=== PATIENT | male | born 1960 | race Caucasian/White ===

== ENCOUNTER → 2018-01-15 | Outpatient (CLI) | payer BC ==
--- NOTE | 2018-01-15 22:27 | CONS ---
CONSULTATION PRIMARY CARE PHYSICIAN: Dr. Restrepo REASON FOR EVALUATION: Obstructive sleep apnea. HISTORY OF PRESENT ILLNESS: This is a 57-year-old male patient was diagnosed having obstructive sleep apnea more than 10 years ago through the sleep center in [place]. He had an older generation CPAP unit which he not bring today to the office. The exact pressure setting is not known. The original diagnostic circumstances and treatment consent on the sleep apnea is not known. The patient is still using his older CPAP machine. He is using a full-face mask. He is in for reevaluation. He is not seeing the full benefit and he thinks that he may need to repeat his sleep studies to re-evaluate and improve his treatment response. He is on and off snoring while on the treatment. He goes to bed around 1:00 am to 2:00 am, and he gets out of bed around 10 a.m. in the morning. Despite averaging around 6-7 hours of sleep, the patient is still tired and sleepy during the day. He falls asleep during the day. He is quite somnolent and sleepy. Unsure if he has gained any weight over the past 2 years. He thinks that his weight has been essentially stable. He could have lost some weight thinking that he used to weigh around 320 pounds and currently is down to 265. His current [place] score 13. No seizure activity. No chest pain. No shortness of breath. No restlessness in lower extremities. PAST MEDICAL HISTORY: 1. Obstructive sleep apnea, details discussed above. 2. Chronic anxiety. 3. Benign prostatic hypertrophy. 4. Hypertension. 5. History of bilateral deep vein thrombosis lower extremity. 6. Hyperlipidemia. PAST SURGICAL HISTORY: Includes tonsillectomy and adenoidectomy and hernia surgery x2 and bilateral knee surgery. DRUG ALLERGIES: Not known. OUTPATIENT MEDICATION: Include hydrocodone 10/325 twice a day for pain control. Klonopin 1 mg for anxiety once a day. Lopressor 50 mg twice a day, Pepcid 40 mg p.o. twice a day. Lamictal 100 mg 3 times a day, Coumadin 5 mg alternating 2 pills and 3 pills. Flomax 0.4 mg p.o. daily, muscle relaxer which is Flexeril 10 mg at bedtime. He is also taking an additional cholesterol pills. FAMILY HISTORY: Negative for sleep apnea. Father had heart disease. Mother had diabetes mellitus. REVIEW OF SYSTEMS: 12-point review of system was done. He is having tiredness and sleepiness during the day. He snores while on CPAP therapy. He is using a full-face mask. No choking or gasping sensation at nighttime. No nocturia. No grinding of the teeth. No dry mouth. No palpitation. He has chronic anxiety. No panic attacks. No heartburn. No sweating. No sleeptalking or no sleepwalking. No claustrophobia. No sexual dysfunction. No history of depression. PHYSICAL EXAMINATION: His current vitals: BP is 109/64, pulse 60 respirations 16, temperature 97.9, saturation 98% on room air. Height 5 feet 11 inches with 233 weight, neck size is 15- 3/4 of an inch. GENERAL APPEARANCE: Appears calm, comfortable. Not in acute distress. HEENT: Head is atraumatic, normocephalic. NECK: Neck is short supple. Mallampati class IV. There is no goiter or neck masses. LUNGS: Clear to auscultation. HEART: Sounds regular rate and rhythm. Normal S1, S2. No S3, S4. No murmurs. ABDOMEN: Soft, nontender. No organomegaly. EXTREMITIES: No edema. No cyanosis or clubbing. NEUROLOGIC: The patient is alert and oriented x3. No focal neurological deficits. PSYCHIATRIC: Negative for depression, yet he is having anxiety. SKIN negative for any wounds or ulceration. IMPRESSION: 1. Obstructive sleep apnea. Symptomatic. His last evaluation was done 10 years ago at [facility]. The patient is coming in for evaluation. He has lost probably around 50 pounds since his original diagnosis. He used to weigh around 135, and currently is down to 233. 2. Hypersomnia [place] score of 13. 3. Chronic anxiety and chronic pain. 4. Hyperlipidemia. 5. Benign prostatic hypertrophy. 6. History of deep vein thrombosis currently on long-term anticoagulation with warfarin. PLAN: 1. We will try to obtain copies of his previous sleep study from [facility]. 2. I will re-evaluate the patient. We will order another plus polysomnogram to re- evaluate the presence of obstructive sleep apnea especially that he has lost significant amount of weight over the years and if needed we will proceed with CPAP titration and treat this patient's obstructive sleep apnea. 3. Optimize sleep hygiene measures. 4. Continue Klonopin for anxiety. 5. Continue Flexeril as a muscle relaxant. 6. We will continue to follow and make further recommendations based on results of the sleep study. MMODL / IJN: [id number] /
== END | disposition home or self-care (01) ==
LOC: SLEEP 15:43
PROVIDERS: ATTEND Internal Medicine Critical Care Medicine
DX: G47.33 Obstructive sleep apnea (adult) (pediatric) (principal); F41.8 Other specified anxiety disorders; G89.29 Other chronic pain; N40.0 Benign prostatic hyperplasia without lower urinary tract symptoms; I10 Essential (primary) hypertension; E78.5 Hyperlipidemia, unspecified; Z86.718 Personal history of other venous thrombosis and embolism; Z79.01 Long term (current) use of anticoagulants; Z79.899 Other long term (current) drug therapy; Z98.890 Other specified postprocedural states; Z79.891 Long term (current) use of opiate analgesic
CPT/HCPCS: 99211

== ENCOUNTER 2022-06-10 03:19 | Inpatient (IN) | payer BC ==
[2022-06-10] MEDS ORDERED: SODIUM CHLORIDE 0.9% 1,000 ML IV STA ×2 (03:41→06:03)
[2022-06-10 04:13] LABS: Basophils % (A) 0 %; Eosinophils # (A) 0.1 k/uL (0-0.7); Eosinophils % (A) 1 %; HCT 39.4 % (39.0-53.0); HGB 13.3 gm/dL (13.0-17.5); Lymphocytes # (A) 1.1 k/uL (1.0-4.8); Lymphocytes % (A) 12 %; MCH 28.5 pg (25.0-35.0); MCHC 33.8 g/dL (31.0-37.0); MCV 84.3 fL (80.0-100.0); Mean Platelet Volume 9.9; Monocytes # (A) 0.7 k/uL (0-1.0); Monocytes % (A) 7 %; Neutrophils # (A) 6.9 k/uL (1.3-7.7); Neutrophils % (A) 78 %; Platelet Count 132 k/uL (150-450); RBC 4.68 m/uL (4.30-5.90); RDW 13.6 % (11.5-15.5); WBC 8.9 k/uL (3.8-10.6)
--- NOTE | 2022-06-10 04:23 | XR ---
EXAMINATION TYPE: XR chest 2V DATE OF EXAM: 06/10/2022 COMPARISON: 11/22/2014 HISTORY: Short of breath TECHNIQUE: 2 views FINDINGS: Heart and mediastinum are normal. Lungs are clear of infiltrate. No heart failure. There ar e no hilar masses. Costophrenic angles are clear. Bony thorax is intact. IMPRESSION: No active cardiopulmonary disease. Normal heart. No change.
[2022-06-10 04:30] LABS: ALT 22 U/L (4-49); AST 23 U/L (17-59); African American GFR (CKD) >90 (>60 ml/min/1.73 sqM); Albumin 4.2 g/dL (3.5-5.0); Alkaline Phosphatase 100 U/L (38-126); Anion Gap 14 mmol/L; Blood Urea Nitrogen 20 mg/dL (9-20); Calcium 8.8 mg/dL (8.4-10.2); Carbon Dioxide 22 mmol/L (22-30); Chloride 102 mmol/L (98-107); Glucose 161 mg/dL (74-99); Magnesium 1.8 mg/dL (1.6-2.3); Non-African American GFR(CKD) >90 (>60 ml/min/1.73 sqM); Sodium 138 mmol/L (137-145); Total Protein 6.9 g/dL (6.3-8.2)
[2022-06-10 04:32] LABS: INR 1.2 (<1.2); Partial Thromboplastin Time 25.8 sec (22.0-30.0); Prothrombin Time 12.2 sec (9.0-12.0)
[2022-06-10 04:34] LABS: Potassium 4.1 mmol/L (3.5-5.1)
--- NOTE | 2022-06-10 04:46 | ED ---
General Adult HPI - General Chief complaint: Shortness of Breath Stated complaint: SOB, Covid, syncope Time Seen by Provider: 06/10/22 03:33 Source: patient, family, EMS, RN notes reviewed, old records reviewed Mode of arrival: EMS Limitations: no limitations - History of Present Illness Initial comments: Patient is a 61-year-old male with past medical history remarkable for DVT is supposed to be on Coumadin but has been without for at least one week, GERD, hypertension who presents emergency department being Covid positive. Had a near syncopal episode at home earlier this evening, when he was returning from the bathroom. States he stood up from the toilet, walked into the bedroom and felt strange. He states he felt lightheaded. Nearly collapsed but was caught by family members. They called EMS and brought him here. They found that his o xygen level was low at that time, 85% on room air. They put him on 4 L nasal cannula which improved it. He denies any current chest pain but states that over the course of last week has been having intermittent substernal chest pain. Also chest tightness with coughing. Endorses one episode of diarrhea this morning. Denies nausea or vomiting. Diarrhea was nonbloody. Endorses upper respiratory symptoms including cough, congestion. Presents for further evaluation at this time.Endorses exertional shortness of breath with any form of activity since symptoms began. Also endorses generalized joint pain. Patient was vaccinated for COVID-19. - Related Data Home Medications Medication Instructions Recorded Confirmed Aspirin 81 mg PO DAILY 11/22/14 11/22/14 Famotidine [Pepcid] 40 mg PO HS 11/22/14 11/22/14 HYDROcodone/APAP 10-325MG [[place] 1 each PO Q4HR PRN 11/22/14 11/22/14 10] Metoprolol Tartrate [Lopressor] 50 mg PO BID 11/22/14 11/22/14 Warfarin [Coumadin] 5 mg PO DAILY 11/22/14 11/22/14 clonazePAM [KlonoPIN] 1 mg PO TID 11/22/14 11/22/14 lamoTRIgine [LaMICtal] 100 mg PO BID 11/22/14 11/22/14 Previous Rx's Medication Instructions Recorded Levofloxacin [Levaquin] 500 mg PO DAILY #10 tab 11/22/14 methylPREDNISolone [Medrol] 1 pack PO DIRECTED #1 tab.ds.pk 11/22/14 Allergies Allergy/AdvReac Type Severity Reaction Status Date / Time No Known Allergies Allergy Verified 11/22/14 12:39 Review of Systems ROS Statement: Those systems with pertinent positive or pertinent negative responses have been documented in the HPI. Review of Systems: CONST: Denies fever EYES: Denies blurry vision ENT: Endorses nasal congestion C/V: Denies current Chest pain RESP: Endorses exertional shortness of breath. GI: Denies abdominal pain : Denies dysuria SKIN: Denies rash. MSK: Denies joint pain. NEURO: Denies headache ROS Other: All systems not noted in ROS Statement are negative. Past Medical History Past Medical History: Deep Vein Thrombosis (DVT), GERD/Reflux, Hypertension History of Any Multi-Drug Resistant Organisms: None Reported Past Surgical History: Adenoidectomy, Hernia Repair, Orthopedic Surgery, Tonsillectomy Additional Past Surgical History / Comment(s): hx of chronic back pain seizures vrs panic attack Past Psychological History: No Psychological Hx Reported Past Alcohol Use History: None Reported Past Drug Use History: None Reported General Exam - General Exam Comments Initial Comments: General: Appears in no acute distress. HEAD: Normal with no signs of head trauma. EYES: PERRLA, EOMI, conjunctiva normal, no discharge. ENT: Hearing grossly intact, normal oropharynx. RESPIRATORY: Clear breath sounds bilaterally. No wheezes, rales, or rhonchi. Hypoxia on room air. No increased work of breathing. C/V: Mildly tachycardic with a regular rhythm. S1 and S2 auscultated, no edema, peripheral pulses 2+ and intact throughout ABD: Abd is soft, nontender, nondistended EXT: Normal range of motion, no obvious deformity SKIN: No rashes or lesions observed on exposed skin. NEURO: Alert and oriented x 4. Cranial nerves II-XII intact. No focal sensory or strength deficits. GCS of 15. NIH is 0. Limitations: no limitations Course Vital Signs 06/10/22 06/10/22 06/10/22 03:21 03:28 03:57 Temperature 98.0 F 97.9 F Pulse Rate 108 H 115 H Respiratory 19 19 16 Rate Blood Pressure 108/72 120/89 O2 Sat by Pulse 98 90 L Oximetry 06/10/22 06/10/22 06/10/22 04:26 05:00 05:35 Temperature Pulse Rate 109 H 106 H 110 H Respiratory 17 17 17 Rate Blood Pressure O2 Sat by Pulse 94 L 94 L 96 Oximetry 06/10/22 06/10/22 05:52 06:32 Temperature 98.8 F Pulse Rate 105 H 103 H Respiratory 18 18 Rate Blood Pressure 128/87 119/73 O2 Sat by Pulse 97 Oximetry Medical Decision Making - Medical Decision Making Based on the patient's presentation and physical exam, does appear he had a near-syncopal episode at home and is COVID-19 positive. Was hypoxic for EMS as well. Vital signs are currently remarkable for a tachycardia, as well as hypoxia on room air to the high 80s% to 90%. We will continue to liters nasal cannula at this time. We will obtain infectious labs, cardiopulmonary labs with his chest pain. He was in agreement this plan. He has been off his Coumadin, and therefore we will also obtain a d-dimer is well his INR to evaluate for therapeutic levels. He was in agreement with this plan. We'll continue him on continuous pulse oximetry and cardiac monitoring. EKG shows no signs of acute ischemia. There is an isolated T-wave inversion in lead III with no prior EKGs for comparison. Chest x-ray shows no acute cardiopulmonary process. Laboratory studies are remarkable for a lactic acid within normal limits. Patient's d-dimer was found to be elevated to 19.98. INR is not therapeutic. Troponin is elevated to 0.458. BNP is not elevated. Covid is positive. Flu is negative. Due to the patient's tachycardia, mild hypoxia, as well as elevated d-dimer we'll obtain a CT PE at this time. I did speak verbally with the radiologist who read the computed tomography scan, he stated that he thinks there may be mild right heart strain considering the size of the PE. However his read did not reflect this when dictated. It stated: CT PE shows multiple bilateral large central PEs with saddle embolism. No evidence of any significant right heart strain. A small left pleural effusion. I updated the patient who expressed understanding. He was started on high intensity heparin therapy. He remains hemodynamically stable at this time with blood pressure within acceptable limits. He is borderline tachycardic with heart rate between 100 and 105. Requiring 2 L nasal cannula oxygen to saturate 95%. I spoke with his admitting physician, Dr. Landaverde who is in agreement with the plan. I spoke with the hauling contractor scagliola mechanic on-call Dr. Lagunas who is in agreement with the plan for EKOS evaluation. He also accepted the patient to the ICU. I spoke with the on-call EKOS physician, Dr. Mejía, who was in agreement with the plan and requested a stat echo which is pending at this time. Patient was therefore admitted to the ICU in serious condition. He remains hemodynamically stable at this time and is saturating well on 2L NC. It is the weekend, and we do not have echo techs on the weekend. We must call them in. My community association manager was able to contact the stat central supply tech Lizeth who is on her way in to complete the study. I did get approval for a stat echo from cardiology on-call, Dr. Yanez. - Lab Data Result diagrams: 06/10/22 03:43 06/10/22 03:43 Lab Results 06/10/22 06/10/22 06/10/22 Range/Units 03:43 03:43 03:43 WBC 8.9 (3.8-10.6) k/uL RBC 4.68 (4.30-5.90) m/uL Hgb 13.3 (13.0-17.5) gm/dL Hct 39.4 (39.0-53.0) % MCV 84.3 (80.0-100.0) fL MCH 28.5 (25.0-35.0) pg MCHC 33.8 (31.0-37.0) g/dL RDW 13.6 (11.5-15.5) % Plt Count 132 L (150-450) k/uL MPV 9.9 Neutrophils % 78 % Lymphocytes % 12 % Monocytes % 7 % Eosinophils % 1 % Basophils % 0 % Neutrophils # 6.9 (1.3-7.7) k/uL Lymphocytes # 1.1 (1.0-4.8) k/uL Monocytes # 0.7 (0-1.0) k/uL Eosinophils # 0.1 (0-0.7) k/uL Basophils # 0.0 (0-0.2) k/uL PT 12.2 H (9.0-12.0) sec INR 1.2 H (<1.2) APTT 25.8 (22.0-30.0) sec D-Dimer 19.98 H (<0.60) mg/L FEU Sodium 138 (137-145) mmol/L Potassium 4.1 (3.5-5.1) mmol/L Chloride 102 (98-107) mmol/L Carbon Dioxide 22 (22-30) mmol/L Anion Gap 14 mmol/L BUN 20 (9-20) mg/dL Creatinine 0.80 (0.66-1.25) mg/dL Est GFR (CKD-EPI)AfAm >90 (>60 ml/min/1.73 sqM) Est GFR (CKD-EPI)NonAf >90 (>60 ml/min/1.73 sqM) Glucose 161 H (74-99) mg/dL Plasma Lactic Acid Ankit (0.7-2.0) mmol/L Calcium 8.8 (8.4-10.2) mg/dL Magnesium 1.8 (1.6-2.3) mg/dL Total Bilirubin 1.0 (0.2-1.3) mg/dL AST 23 (17-59) U/L ALT 22 (4-49) U/L Alkaline Phosphatase 100 (38-126) U/L Troponin I (0.000-0.034) ng/mL NT-Pro-B Natriuret Pep pg/mL Total Protein 6.9 (6.3-8.2) g/dL Albumin 4.2 (3.5-5.0) g/dL Coronavirus (PCR) (Not Detectd) Influenza Type A RNA (Not Detectd) Influenza Type B (PCR) (Not Detectd) 06/10/22 06/10/22 06/10/22 Range/Units 03:43 03:43 03:43 WBC (3.8-10.6) k/uL RBC (4.30-5.90) m/uL Hgb (13.0-17.5) gm/dL Hct (39.0-53.0) % MCV (80.0-100.0) fL MCH (25.0-35.0) pg MCHC (31.0-37.0) g/dL RDW (11.5-15.5) % Plt Count (150-450) k/uL MPV Neutrophils % % Lymphocytes % % Monocytes % % Eosinophils % % Basophils % % Neutrophils # (1.3-7.7) k/uL Lymphocytes # (1.0-4.8) k/uL Monocytes # (0-1.0) k/uL Eosinophils # (0-0.7) k/uL Basophils # (0-0.2) k/uL PT (9.0-12.0) sec INR (<1.2) APTT (22.0-30.0) sec D-Dimer (<0.60) mg/L FEU Sodium (137-145) mmol/L Potassium (3.5-5.1) mmol/L Chloride (98-107) mmol/L Carbon Dioxide (22-30) mmol/L Anion Gap mmol/L BUN (9-20) mg/dL Creatinine (0.66-1.25) mg/dL Est GFR (CKD-EPI)AfAm (>60 ml/min/1.73 sqM) Est GFR (CKD-EPI)NonAf (>60 ml/min/1.73 sqM) Glucose (74-99) mg/dL Plasma Lactic Acid Ankit 1.3 (0.7-2.0) mmol/L Calcium (8.4-10.2) mg/dL Magnesium (1.6-2.3) mg/dL Total Bilirubin (0.2-1.3) mg/dL AST (17-59) U/L ALT (4-49) U/L Alkaline Phosphatase (38-126) U/L Troponin I 0.458 H* (0.000-0.034) ng/mL NT-Pro-B Natriuret Pep 324 pg/mL Total Protein (6.3-8.2) g/dL Albumin (3.5-5.0) g/dL Coronavirus (PCR) (Not Detectd) Influenza Type A RNA (Not Detectd) Influenza Type B (PCR) (Not Detectd) 06/10/22 06/10/22 Range/Units 04:26 04:26 WBC (3.8-10.6) k/uL RBC (4.30-5.90) m/uL Hgb (13.0-17.5) gm/dL Hct (39.0-53.0) % MCV (80.0-100.0) fL MCH (25.0-35.0) pg MCHC (31.0-37.0) g/dL RDW (11.5-15.5) % Plt Count (150-450) k/uL MPV Neutrophils % % Lymphocytes % % Monocytes % % Eosinophils % % Basophils % % Neutrophils # (1.3-7.7) k/uL Lymphocytes # (1.0-4.8) k/uL Monocytes # (0-1.0) k/uL Eosinophils # (0-0.7) k/uL Basophils # (0-0.2) k/uL PT (9.0-12.0) sec INR (<1.2) APTT (22.0-30.0) sec D-Dimer (<0.60) mg/L FEU Sodium (137-145) mmol/L Potassium (3.5-5.1) mmol/L Chloride (98-107) mmol/L Carbon Dioxide (22-30) mmol/L Anion Gap mmol/L BUN (9-20) mg/dL Creatinine (0.66-1.25) mg/dL Est GFR (CKD-EPI)AfAm (>60 ml/min/1.73 sqM) Est GFR (CKD-EPI)NonAf (>60 ml/min/1.73 sqM) Glucose (74-99) mg/dL Plasma Lactic Acid Ankit (0.7-2.0) mmol/L Calcium (8.4-10.2) mg/dL Magnesium (1.6-2.3) mg/dL Total Bilirubin (0.2-1.3) mg/dL AST (17-59) U/L ALT (4-49) U/L Alkaline Phosphatase (38-126) U/L Troponin I (0.000-0.034) ng/mL NT-Pro-B Natriuret Pep pg/mL Total Protein (6.3-8.2) g/dL Albumin (3.5-5.0) g/dL Coronavirus (PCR) Detected A (Not Detectd) Influenza Type A RNA Not Detected (Not Detectd) Influenza Type B (PCR) Not Detected (Not Detectd) - EKG Data -: EKG Interpreted by Me EKG Comments: 12-lead Electrocardiogram Interpretation Note EKG was reviewed and interpreted by myself. 12-lead ECG performed at 0349 is interpreted by me as revealing sinus tachycardia at a rate of 110 beats per minute. [place]ischmann[place] is normal. WI interval is 120 ms, QRS durations 104 ms, QTc is 404 ms.. There were no ST or T wave abnormalities to suggest myocardial ischemia or injury. R wave progression across the precordium was satisfactory. By my interpretation this EKG is non-diagnostic for acute ischemia. There is an isolated T-wave inversion in lead III of unknown chronicity. Critical Care Time Critical Care Time: Yes Total Critical Care Time: 35 Critical Care Time: Upon my evaluation, this patient had a high probability of imminent or life- threatening deterioration due to saddle pulmonary embolism, Covid 19 infection which required my direct attention, intervention, and personal management. I have personally provided 35 minutes of critical care time exclusive of time spent on separately billable procedures. Time includes review of laboratory data, radiology results, discussion with consultants, and monitoring for potential decompensation. Interventions were performed as documented in my note. Disposition Clinical Impression: Saddle pulmonary embolus, Elevated troponin, COVID-19 virus infection, Hypoxia, Noncompliance with medication regimen, Subtherapeutic international normalized ratio (INR), History of DVT (deep vein thrombosis) Disposition: ADMITTED IP TO THIS HOSP Condition: Serious Time of Disposition: 05:50
[2022-06-10] MEDS ORDERED: HEPARIN SODIUM 1,000 UN/ML (10ML VL) IV ONE (05:20)
[2022-06-10] MEDS ORDERED: HEPARIN SODIUM 1,000 UN/ML (10ML VL) IV PRN (05:20)
[2022-06-10] MEDS ORDERED: ASPIRIN 81 MG PO STA (05:22)
[2022-06-10] MEDS: HEPARIN SOD,PORK IN 0.45% NACL 25,000 UNIT in 0.45% NACL 1 250ML.BAG IV SCH ×2 (05:33→14:19)
--- NOTE | 2022-06-10 05:39 | CT ---
EXAMINATION TYPE: CT chest angio for PE DATE OF EXAM: 06/10/2022 COMPARISON: None HISTORY: covid + elevated d-dimer CT DLP: 684 mGycm Automated exposure control for dose reduction was used. CONTRAST: Performed with IV Contrast, patient injected with 100ml mL of Isovue 370. Images obtained from the thoracic inlet to the diaphragm with the IV contrast. There are Three-D post processed images. The lungs are clear of consolidation. There is some mild atelectasis at the posterior lung bases. The re is small left pleural effusion. Heart size is normal. No pericardial effusion. No mediastinal adenopathy. There are no hilar masses. Thoracic aorta is intact. No aneurysm or dissec tion. There are large filling defects in the central branches of the pulmonary arteries bilaterally. There is saddle embolism with large embolus extending across the main pulmonary artery. There is embolism i nvolvement of the left upper lobe and left lower lobe pulmonary artery and on the right side mainly i n the right lower lobe pulmonary artery. There is relative sparing of the right upper lobe pulmonary artery. No evidence of contrast reflux into the inferior vena cava. The thoracic spine is intact there is degenerative spur formation. Sternum is intact. No compression fracture. IMPRESSION: Multiple bilateral large central pulmonary emboli with saddle embolism. No evidence of any significant right heart strain. Small left pleural effusion. Mild atelectasis at the lung bases. The exam was discussed with emergency room attending staff at 5:30 AM
[2022-06-10] MEDS ORDERED: NALOXONE 0.4 MG/ML 1 ML VIAL IV PRN (05:57)
--- NOTE | 2022-06-10 08:03 | US ---
EXAMINATION TYPE: US venous doppler duplex LE DATE OF EXAM: 06/10/2022 7:50 AM COMPARISON: NONE CLINICAL HISTORY: eval for dvt. Known pulmonary emboli. SIDE PERFORMED: Bilateral TECHNIQUE: The lower extremity deep venous system is examined utilizing real time linear array sonog diony with graded compression, doppler sonography and color-flow sonography. VESSELS IMAGED: Common Femoral Vein Deep Femoral Vein Greater Saphenous Vein * Femoral Vein Popliteal Vein Small Saphenous Vein * Proximal Calf Veins (* superficial vessels) Right Leg: Negative for DVT Left Leg: Positive for DVT, at proximal and mid popliteal vein Grayscale, color doppler, spectral doppler imaging performed of the deep veins of the bilateral lower extremities. There is normal flow, compressibility, vascular waveforms in the right lower extremity .. IMPRESSION: Acute DVT is present in the proximal and mid portions of the left popliteal vein above a nd at level of knee.
--- NOTE | 2022-06-10 08:13 | P.GSHP ---
History of Present Illness H&P Date: 06/10/22 Chief Complaint: shortness 61 year old male with past medical history of lower extremity DVT who has been on Coumadin but states running out of medication for at least one week presents to the hospital secondary to a near syncopal episode and shortness of breath. Patient states going to the bathroom, feeling lightheaded, strange and almost collapsed in front of his family. He was caught prior to falling. EMS was called and upon evaluation he had O2 sats of 85% and was then placed on oxygen 4L at the time. He states over the last couple of days he has had a cough and congestion. He currently denies any fevers, chest pain. He had a CT PE protocol in the ER which demonstrated a saddle PE. He has elevated troponins and ECHO demonstrates right heart strain. He states he had laparoscopic hernia repair in March, denies any active bleeding or history of bleeding. - Review of Systems All systems: negative (what is mentioned in the PMH or HPI) Past Medical History Past Medical History: Deep Vein Thrombosis (DVT), GERD/Reflux, Hypertension History of Any Multi-Drug Resistant Organisms: None Reported Past Surgical History: Adenoidectomy, Hernia Repair, Orthopedic Surgery, Tonsillectomy Additional Past Surgical History / Comment(s): hx of chronic back pain seizures vrs panic attack Past Psychological History: No Psychological Hx Reported Past Alcohol Use History: None Reported Past Drug Use History: None Reported Medications and Allergies Home Medications Medication Instructions Recorded Confirmed Type Aspirin 81 mg PO DAILY 11/22/14 11/22/14 History Famotidine [Pepcid] 40 mg PO HS 11/22/14 11/22/14 History HYDROcodone/APAP 10-325MG [Linden 1 each PO Q4HR PRN 11/22/14 11/22/14 History 10] Levofloxacin [Levaquin] 500 mg PO DAILY #10 tab 11/22/14 Rx Metoprolol Tartrate [Lopressor] 50 mg PO BID 11/22/14 11/22/14 History Warfarin [Coumadin] 5 mg PO DAILY 11/22/14 11/22/14 History clonazePAM [KlonoPIN] 1 mg PO TID 11/22/14 11/22/14 History lamoTRIgine [LaMICtal] 100 mg PO BID 11/22/14 11/22/14 History methylPREDNISolone [Medrol] 1 pack PO DIRECTED #1 tab.ds.pk 11/22/14 Rx Allergies Allergy/AdvReac Type Severity Reaction Status Date / Time No Known Allergies Allergy Verified 11/22/14 12:39 Surgical - Exam Vital Signs Temp Pulse Resp BP Pulse Ox 98.0 F 108 H 19 108/72 98 06/10/22 03:21 06/10/22 03:21 06/10/22 03:21 06/10/22 03:21 06/10/22 03:21 - General well developed, well nourished, no distress - Eyes PERRL, normal ocular movement - ENT normal pinna, normal nares - Neck no masses - Respiratory other (decreased respiratory effort) - Cardiovascular Rhythm: regular - Abdomen Abdomen: soft, non tender - Integumentary no rash, no growths - Neurologic normal coordination, normal sensation - Psychiatric oriented to time, oriented to person, oriented to place, speech is normal palpable femoral pulses bilaterally. diminished DP or PT pulses Results - Labs 06/10/22 03:43 06/10/22 03:43 Abnormal Lab Results - Last 24 Hours (Table) 06/10/22 06/10/22 06/10/22 Range/Units 03:43 03:43 03:43 Plt Count 132 L (150-450) k/uL PT 12.2 H (9.0-12.0) sec INR 1.2 H (<1.2) D-Dimer 19.98 H (<0.60) mg/L FEU Glucose 161 H (74-99) mg/dL Troponin I (0.000-0.034) ng/mL Coronavirus (PCR) (Not Detectd) 06/10/22 06/10/22 Range/Units 03:43 04:26 Plt Count (150-450) k/uL PT (9.0-12.0) sec INR (<1.2) D-Dimer (<0.60) mg/L FEU Glucose (74-99) mg/dL Troponin I 0.458 H* (0.000-0.034) ng/mL Coronavirus (PCR) Detected A (Not Detectd) Diabetes panel 06/10/22 Range/Units 03:43 Sodium 138 (137-145) mmol/L Potassium 4.1 (3.5-5.1) mmol/L Chloride 102 (98-107) mmol/L Carbon Dioxide 22 (22-30) mmol/L BUN 20 (9-20) mg/dL Creatinine 0.80 (0.66-1.25) mg/dL Glucose 161 H (74-99) mg/dL Calcium 8.8 (8.4-10.2) mg/dL AST 23 (17-59) U/L ALT 22 (4-49) U/L Alkaline Phosphatase 100 (38-126) U/L Total Protein 6.9 (6.3-8.2) g/dL Albumin 4.2 (3.5-5.0) g/dL Calcium panel 06/10/22 Range/Units 03:43 Calcium 8.8 (8.4-10.2) mg/dL Albumin 4.2 (3.5-5.0) g/dL Pituitary panel 06/10/22 Range/Units 03:43 Sodium 138 (137-145) mmol/L Potassium 4.1 (3.5-5.1) mmol/L Chloride 102 (98-107) mmol/L Carbon Dioxide 22 (22-30) mmol/L BUN 20 (9-20) mg/dL Creatinine 0.80 (0.66-1.25) mg/dL Glucose 161 H (74-99) mg/dL Calcium 8.8 (8.4-10.2) mg/dL Adrenal panel 06/10/22 Range/Units 03:43 Sodium 138 (137-145) mmol/L Potassium 4.1 (3.5-5.1) mmol/L Chloride 102 (98-107) mmol/L Carbon Dioxide 22 (22-30) mmol/L BUN 20 (9-20) mg/dL Creatinine 0.80 (0.66-1.25) mg/dL Glucose 161 H (74-99) mg/dL Calcium 8.8 (8.4-10.2) mg/dL Total Bilirubin 1.0 (0.2-1.3) mg/dL AST 23 (17-59) U/L ALT 22 (4-49) U/L Alkaline Phosphatase 100 (38-126) U/L Total Protein 6.9 (6.3-8.2) g/dL Albumin 4.2 (3.5-5.0) g/dL Assessment and Plan Assessment: 1. Acute bilateral PE with right heart strain 2. History of lower extremity DVT 3. COVID positive 4. HTN Plan: Reviewed images with the patient and . Significant saddle PE noted. Elevated troponins and ECHO appears to have right heart strain. Discussed options including anticoagulation as well as EKOS thrombolysis. Will take to farm labor contractor for placement of EKOS catheters and initiation of thrombolytics.
[2022-06-10] MEDS: ASCORBIC ACID 500 MG TAB PO SCH (10:10)
[2022-06-10] MEDS: CHOLECALCIFEROL 25 MCG (1000 IU) TABLET PO SCH (10:10)
[2022-06-10] MEDS: ZINC SULFATE 220 MG CAP PO SCH (10:11)
[2022-06-10] MEDS ORDERED: IV FLUID CONTINUATION 1,000 ML IV ONE (10:25)
[2022-06-10] MEDS ORDERED: SODIUM CHLORIDE 0.9% 250 ML IV ONE (10:25)
[2022-06-10] MEDS ORDERED: ALTEPLASE 10 MG in SODIUM CHLORIDE 0.9% 90 ML IV ONE ×4 (10:33)
[2022-06-10] MEDS ORDERED: ALTEPLASE 2 MG VIAL (CATHFLO) IV STA (10:36)
[2022-06-10] MEDS ORDERED: SODIUM CHLORIDE 0.9% 1,000 ML IV SCH ×2 (10:45)
[2022-06-10] MEDS ORDERED: HEPARIN SOD,PORK IN 0.45% NACL 25,000 UNIT in 0.45% NACL 1 250ML.BAG IV SCH ×2 (10:45)
[2022-06-10] MEDS ORDERED: MIDAZOLAM 2 MG/2 ML VIAL IV ONE (10:50)
[2022-06-10] MEDS ORDERED: LIDOCAINE 1% INJ 10MG/ML (30 ML VIAL-PF) SQ ONE (10:52)
[2022-06-10] MEDS ORDERED: fentaNYL (PF) 50 MCG/ML 2 ML AMP ONE (11:23)
[2022-06-10] MEDS: fentaNYL (PF) 50 MCG/ML 2 ML AMP IV ONE ×2 (11:25→11:58)
[2022-06-10] MEDS ORDERED: IOPAMIDOL-250 100ML BTL IV ONE (11:30)
[2022-06-10] MEDS ORDERED: MORPHINE SULFATE 2 MG/ML SYRINGE IVP PRN (11:58)
--- NOTE | 2022-06-10 12:03 | P.OP ---
Date of Procedure: 06/10/22 Description of Procedure: Preoperative diagnosis: Bilateral Pulmonary artery embolus with right heart strain Postoperative diagnosis: Same Procedure: Ultrasound-guided right common femoral vein access with placement of bilateral thrombolytic EKOS catheters and initiation of thrombolysis. Surgeon: Gilbert Silver D.O. Anesthesia: Local with conscious sedation x 67 minutes Estimated blood loss: Minimal Complications: None Condition: Stable Indication for procedure: 61-year-old gentleman presented to the ER after a near syncopal event and shortness of breath. He was found to have bilateral saddle PE with heart strain seen on labs with elevated troponin as well as echo. He presents today for thrombotic catheter placement. Operative narrative: After written and informed consent was obtained from the patient and all risk, benefits and complications were discussed the patient was brought to the Core Laying Machine Operator and laid in a supine position. The area of the right groin was prepped and draped in usual sterile fashion. Timeout was performed in normal fashion. Under ultrasound guidance the right common femoral vein was accessed 2 and 6-Uzbek sheaths were placed utilizing Seldinger technique. 035 Glidewire advantage was then placed and directed to the inferior vena cava and atrial junction. Utilizing an angled glide catheter the wire was placed into the right ventricle and ultimately up to the pulmonary artery. The pulmonary artery on the right was accessed and wire was placed into the segmental branch with removal of the angled glide catheter. Through the other sheath and 035 Glidewire advantage was placed and utilizing the angled glide catheter the left pulmonary artery was accessed and wire was placed into the segmental branch and catheter was removed. The EKOS infusion catheters were then guided over the guidewires into the appropriate position across the pulmonary arteries bi laterally. Wires were then removed and replaced with the ultrasound inner core wire. 2 mg of TPA was then infused into both infusion ports. The sheaths were then secured in place with nylon suture. The area was then cleansed and dressings were placed. The patient was then connected to TPA and heparin as well as coolant per protocol. Patient tolerated procedure well and was sent to the ICU for recovery.
--- NOTE | 2022-06-10 12:07 | P.CNPUL ---
History of Present Illness Consult date: 06/10/22 Requesting physician: Radha Landaverde Reason for consult: pulmonary embolism Chief complaint: Shortness of breath and lightheadedness. History of present illness: This is a 61-year-old white male with previous history of deep vein thrombosis, patient has been on Coumadin for many years, however he stopped taking Coumadin for the last 2 weeks. Mostly because the patient ran out of medications. And yesterday he had a sudden near syncopal episode, so she will shortness of breath, felt very lightheaded, and he almost collapsed in front of his family. Patient was caught prior to falling. EMS brought in the patient to the ER, his O2 saturation initially was 85%, patient was placed on oxygen at 4 L, and he had a CT angiogram of the chest, clearly showed saddle pulmonary embolism. Stat echocardiogram demonstrated right heart strain. Patient was seen by vascular surgery and he is scheduled to undergo EKOS thrombolysis today by vascular surgery. I saw this patient in the ER, and I fully agree that the patient should undergo thrombolysis as recommended by vascular surgery. D-dimer was 1 9.98. Troponin was 0.458. In addition to all of this, patient had positive COVID-19 infection, patient has been feeling a bit congested with minimal cough over the last 1 week. Review of Systems CONST: Generalized weakness, no fever, no chills, no weight loss. EYES: Negative ENT: Minimal congestion. C/V: Negative. RESP: As noted in HPI. GI: Negative : Negative SKIN: Negative. MSK: Negative NEURO: As noted in HPI, lightheadedness and near syncope Past Medical History Past Medical History: Deep Vein Thrombosis (DVT), GERD/Reflux, Hypertension History of Any Multi-Drug Resistant Organisms: None Reported Past Surgical History: Adenoidectomy, Hernia Repair, Orthopedic Surgery, Tonsillectomy Additional Past Surgical History / Comment(s): hx of chronic back pain seizures vrs panic attack Past Psychological History: No Psychological Hx Reported Past Alcohol Use History: None Reported Past Drug Use History: None Reported Medications and Allergies Home Medications Medication Instructions Recorded Confirmed Type HYDROcodone/APAP 10-325MG [Herrin 1 tab PO QID 11/22/14 06/10/22 History 10] Metoprolol Tartrate [Lopressor] 50 mg PO BID 11/22/14 06/10/22 History Atorvastatin Calcium [Lipitor] 40 mg PO HS 06/10/22 06/10/22 History Allergies Allergy/AdvReac Type Severity Reaction Status Date / Time No Known Allergies Allergy Verified 11/22/14 12:39 Physical Exam Vitals: Vital Signs Temp Pulse Resp BP Pulse Ox 06/10/22 10:18 93 18 125/84 97 06/10/22 09:14 91 18 108/76 96 06/10/22 08:07 98.4 F 102 H 20 127/86 97 06/10/22 06:32 103 H 18 119/73 06/10/22 05:52 98.8 F 105 H 18 128/87 97 06/10/22 05:35 110 H 17 96 06/10/22 05:00 106 H 17 94 L 06/10/22 04:26 109 H 17 94 L 06/10/22 03:57 97.9 F 115 H 16 120/89 90 L 06/10/22 03:28 19 06/10/22 03:21 98.0 F 108 H 19 108/72 98 Intake and Output 06/09/22 06/10/22 06/10/22 22:59 06:59 14:59 Other: Weight 121.109 kg Physical Exam: Revealed a 61-year-old white male in no distress, on 2 L nasal cannula, O2 saturations 97%. Head: Atraumatic, normocephalic. HEENT:[Neck is supple.] [No neck masses.] [No thyromegaly.] [No JVD.] Chest: [Clear throughout, no crackles, no rhonchi, no wheezes.] Cardiac Exam: [Normal S1 and S2, no S3 gallop, no murmur.] Abdomen: [Soft, nontender, no megaly, no rebound, no guarding, normal bowel sounds.] Extremities: [No clubbing, no edema, no cyanosis.] Neurological Exam: [No focal neurologic deficit.] Alert and oriented 3 no gross focal. Psychiatric: Normal mood, affect and normal status examination. Skin: No rashes. Musculoskeletal: No deformities and no limitation in range of motion. Results - Laboratory Findings CBC and BMP: 06/10/22 03:43 06/10/22 03:43 PT/INR, D-dimer PT 12.2 sec (9.0-12.0) H 06/10/22 03:43 INR 1.2 (<1.2) H 06/10/22 03:43 D-Dimer 19.98 mg/L FEU (<0.60) H 06/10/22 03:43 Abnormal lab findings: Abnormal Labs 06/10/22 06/10/22 06/10/22 03:43 03:43 03:43 Plt Count 132 L PT 12.2 H INR 1.2 H D-Dimer 19.98 H Glucose 161 H Troponin I Coronavirus (PCR) 06/10/22 06/10/22 03:43 04:26 Plt Count PT INR D-Dimer Glucose Troponin I 0.458 H* Coronavirus (PCR) Detected A - Diagnostic Findings CT scan - chest: image reviewed (CT angiogram of the chest showed large filling defects in the central branches of the pulmonary arteries bilaterally saddle embolism with large embolus extending across the main pulmonary artery there is also embolism involving the left upper lobe and left lower lobe. There is also pulmonary emboli) Assessment and Plan Assessment: Impression: Acute bilateral pulmonary embolism with right ventricular strain History of lower extremity DVT, on long-term anticoagulation therapy/Coumadin until 2 weeks ago COVID-19 infection, incidental finding. Most likely contributing to his hypercoagulability and pulmonary embolism not to mention the patient is known to have history of DVT and has been on Coumadin until 2 weeks ago Benign essential hypertension Obstructive sleep apnea syndrome Generalized anxiety disorder Dyslipidemia Recommendation: Agree with recommendation as per vascular, patient will likely benefit from ekos thrombolysis which is scheduled to be done today. Patient to go to ICU after his procedure. Continue oxygen and titrate accordingly COVID-19 cocktail, I believe the COVID-19 infection is rather an incidental finding, patient did not have significant symptoms to suggest severe infection. However his COVID-19 infection may be a major contributing factor to his hypercoagulability at this point and massive thromboembolic disease Resume home meds. We will continue to follow Time with Patient: Greater than 30
--- NOTE | 2022-06-10 12:22 | CA ---
Transthoracic Echo Report Name: Masha Florence Age: 61 Gender: M : 1960 Exam Date: 06/10/2022 07:35 Exam Location: [facility] Echo Ht (in): 72 Wt (lb): 267 Ordering Physician: Kingston Hernandez MD Attending/Referring Phys: Filling Station Laborer Lizeth Lan RDCS Procedure CPT: Indications: PE Cardiac Hx: Technical Quality: Technically difficult study Contrast 1: Lumason Total Dose (mL): 5 Contrast 2: Total Dose (mL): MEASUREMENTS (Male / Female) Normal Values 2D ECHO RV Internal Dim ED PLAX 5.3 cm M-MODE Aortic Root Diameter MM 3.9 cm AV Cusp Separation MM 2.2 cm DOPPLER TR Peak Velocity 278.0 cm/s TR Peak Gradient 41.0 mmHg Right Ventricular Systolic Press 35.8 mmHg FINDINGS Left Ventricle Left ventricular ejection fraction is estimated at 50-55 %. Right Ventricle Severe right ventricular dilatation. Severely reduced right ventricular global systolic function. There is right ventricular enlargement consistent with right ventricular volume overload. Moderate pulmonary hypertension. Right Atrium Normal right atrial size. Left Atrium Normal left atrial size. Mitral Valve Structurally normal mitral valve. Mild mitral regurgitation. Aortic Valve Trileaflet aortic valve. Tricuspid Valve Structurally normal tricuspid valve. [id number] tricuspid regurgitation. Pulmonic Valve Pulmonic valve not well visualized. Pericardium Aorta CONCLUSIONS Normal LV systolic function Severely dilated right ventricle Moderate pulmonary hypertension Previewed by: Dr. Everardo Yanez MD (Electronically Signed) Final Date: 10 June 2022 12:21
[2022-06-10 12:41] LABS: Glucose,Whole Blood 118 mg/dL (70-110)
[2022-06-10 13:08] LABS: Basophils % (A) 0 %; Eosinophils # (A) 0.1 k/uL (0-0.7); Eosinophils % (A) 1 %; HCT 37.5 % (39.0-53.0); HGB 12.4 gm/dL (13.0-17.5); Hypochromasia Slight; Lymphocytes # (A) 1.2 k/uL (1.0-4.8); Lymphocytes % (A) 19 %; MCH 28.5 pg (25.0-35.0); MCHC 33.1 g/dL (31.0-37.0); MCV 86.2 fL (80.0-100.0); Mean Platelet Volume 9.5; Monocytes # (A) 0.4 k/uL (0-1.0); Monocytes % (A) 7 %; Neutrophils # (A) 4.5 k/uL (1.3-7.7); Neutrophils % (A) 72 %; Platelet Count 111 k/uL (150-450); RBC 4.36 m/uL (4.30-5.90); RDW 13.6 % (11.5-15.5); WBC 6.3 k/uL (3.8-10.6)
[2022-06-10] MEDS: HYDROcodone/APAP 10-325MG 1 EACH TAB PO PRN (14:19)
[2022-06-10] MEDS: METOPROLOL TARTRATE 50 MG TAB PO SCH ×2 (14:19→20:14)
--- NOTE | 2022-06-10 14:53 | P.HPIM ---
History of Present Illness H&P Date: 06/10/22 Chief Complaint: Bilateral saddle pulmonary embolism. 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, patient had an upper respiratory tract infection so he checked himself at home after he deve loped to have a sore throat and cough minimal phlegm production came back positive for cold that he start taken some NyQuil, 2 days later developed to have a significant shortness of breath and generalized weakness and could not walk 2 steps without getting out of breath he felt almost going to pass out, apparently the patient had run out of his Coumadin and he stated that he had contacted his pharmacy and my office without any response, I do not have any message in my office in regard to his Coumadin patient presented to the emergency department at [facility] today with significant shortness of breath and he was seen and evaluated in the emergency department and he was found to have a saddle pulmonary emboli for which the incinerator plant laborer was activated for EKOS that was performed by Dr. Adrianne lechuga and pulmonary medicine was consult with, the patient was admitted to the ICU after that, patient is laying down in bed in no apparent distress, is comfortable, he continues to be on oxygen support, he continues to have some pleuritic chest pain, he has no hemoptysis, he has no abdominal pain. Patient underwent venous Doppler both lower extremity is the right lower extremity did not show evidence of DVT however the left lower extremity showed evidence of acute DVT of the proximal and mid popliteal vein, patient also had a CTA of the chest that showed multiple central bilateral pulmonary emboli with saddle embolism, and right-sided ventricular strain pattern, patient had an ech ocardiogram that showed severe dilatation of the right ventricle with moderate pulmonary hypertension. REVIEW OF SYSTEMS: Constitutional: No documented fever, no chills, no night sweats. No weight change. No weakness, fatigue or lethargy. No daytime sleepiness. HEENT: No headache. No blurred vision or double vision, no loss of vision. No loss of Hearing, no ringing in the ears, no dizziness. No nasal drainage or congestion. No epistaxis. No sore throat. Lungs: positive for shortness of breath, occasional cough, with minimal sputum production. No wheezing. Reports dyspnea with activity. Cardiovascular: positive for pleuritic chest pain, positive for lower extremity edema. positive for palpitations. No paroxysmal nocturnal dyspnea. No orthopnea. positive for lightheadedness and dizziness, positive for presyncope. Abdominal: Reports abdominal pain. No nausea, vomiting. No diarrhea. No constipation. No bloody or tarry stools reports loss of appetite. Genitourinary: No dysuria, increased frequency, urgency. No urinary retention. Musculoskeletal: No myalgias. No muscle weakness, no gait dysfunction, no frequent falls. positive for back pain. No neck pain. Integumentary: No wounds, no lesions. No rash or pruritus. No unusual bruising. No change in hair or nails. Neurologic: No aphasia. No facial droop. No change in mentation. No head injury. No headache. No paralysis. No paresthesia. Psychiatric: No depression. No anxiety. No mood swings. Endocrine: No abnormal blood sugars. No weight change. PAST MEDICAL HISTORY: Hypertension and hypertensive cardiovascular disease. Hyperlipidemia. Paroxysmal atrial fibrillation. GERD with esophagitis Spondylosis of the lumbar spine Anxiety Hypercoagulable state PAST SURGICAL HISTORY: Right inguinal hernia repair 2 Left arthroscopic knee surgery. Tonsillectomy and adenoidectomy. SOCIAL HISTORY: patient is a lifelong nonsmoker, he denies any alcohol ingestion, no drug use or abuse. FAMILY HISTORY: father at age of 90 from pulmonary medicine, mother at age of 62 from diabetes complication, patient has 5 sisters one from pancreatic cancer 2 with diabetes for is alive. Patient has 2 sons okay and one daughter no major medical problems. PHYSICAL EXAMINATION: General: 7-year-old male in bed in minimal respiratory distress. HEENT: Head is atraumatic, normocephalic, pupils were equal round reactive to light and recommendation, extraocular muscle movement were intact, sclera nonicteric, conjunctivae were pale, mucous membranes of the mouth are somewhat dry. Neck: Supple, no JVP, normal carotid upstroke bilaterally, no lymphadenopathy. Chest: Decreased breath sounds at the bases, few rhonchi, no expiratory wheezes, no chest wall tenderness, no intercostal retractions. Heart: First heart sound is normal, second heart sound is normal there is no gallop or murmur Abdomen: Soft, nontender, nondistended, positive bowel sounds. Extremities: There is +1 edema no calf tenderness DP +2 bilaterally. Neurologic examination: Patient is awake alert and oriented X 3, cranial nerves II-12 appear grossly intact, muscle power were 5 out of 5 in upper extremities and 5 out of 5 in bilateral lower extremities, deep tendon reflexes normal bilaterally. ASSESSMENT AND PLAN: 1. Bilateral saddle pulmonary emboli. Status post EKOS. Patient is currently on heparin infusion, we'll transition the patient to Xarelto or Eliquis if insurance covers otherwise he go back and his Coumadin to keep his INR between 2-3. 2. Hypertension and hypertensive cardiovascular disease. Continue patient on metoprolol 50 mg orally twice every day, monitor the patient blood pressure very closely. 3. Hyperlipidemia. Continue patient on atorvastatin 40 mg orally once every day. 4. GERD with Esophagitis Continue famotidine 20 mg orally once every day. 5. Spondylosis of the lumbar spine. Continue patient on hydrocodone 10/325 mg one tablet orally every 6 hours as needed. 6. Left lower extremity proximal and mid popliteal DVT. Continue heparin drip for now. 7. Moderate pulmonary hypertension with acute dilatation of the right ventricle. Continue patient on metoprolol 50 mg orally twice every day, monitor the patient's history closely. 8. obstructive sleep apnea. Patient will need to be maintained on CPAP machine. 9. History of DVT and hypercoagulable state. Continue on anticoagulation for life. 10. Paroxysmal atrial fibrillation. Continue patient on metoprolol 50 mg orally twice every day, continue heparin drip and transitioned to oral anticoagulation. 11. DVT prophylaxis. Continue with heparin drip for now 12. GI prophylaxis. Continue famotidine 20 mg once every day. 13. Anxiety disorder. Patient is currently not on Lexapro. 14. COVID-19 positive PCR patient had Covid a week ago. And he does not appear to have any severe symptoms. However Covid is the culprit for his hypercoagulable state beside stopping his anticoagulation. 15. Admit to inpatient. Estimate a length of stay 2 midnights. 16. Full code. Past Medical History Past Medical History: Deep Vein Thrombosis (DVT), GERD/Reflux, Hypertension History of Any Multi-Drug Resistant Organisms: None Reported Past Surgical History: Adenoidectomy, Hernia Repair, Orthopedic Surgery, Tonsillectomy Additional Past Surgical History / Comment(s): hx of chronic back pain seizures vrs panic attack Past Psychological History: No Psychological Hx Reported Past Alcohol Use History: None Reported Past Drug Use History: None Reported Medications and Allergies Home Medications Medication Instructions Recorded Confirmed Type HYDROcodone/APAP 10-325MG [[place] 1 tab PO QID 11/22/14 06/10/22 History 10] Metoprolol Tartrate [Lopressor] 50 mg PO BID 11/22/14 06/10/22 History Atorvastatin Calcium [Lipitor] 40 mg PO HS 06/10/22 06/10/22 History Allergies Allergy/AdvReac Type Severity Reaction Status Date / Time No Known Allergies Allergy Verified 11/22/14 12:39 Physical Exam Vitals: Vital Signs Temp Pulse Resp BP Pulse Ox 06/10/22 14:20 87 7 L 96 06/10/22 14:10 88 12 97 06/10/22 14:00 99 19 134/89 96 06/10/22 13:50 90 17 98 06/10/22 13:40 24 98 06/10/22 13:30 89 14 98 06/10/22 13:20 8 L 97 06/10/22 13:10 88 11 L 96 06/10/22 13:00 98.1 F 92 9 L 133/87 95 06/10/22 12:50 93 12 91 L 06/10/22 12:40 89 5 L 98 06/10/22 12:00 20 06/10/22 10:18 93 18 125/84 97 06/10/22 09:14 91 18 108/76 96 06/10/22 08:07 98.4 F 102 H 20 127/86 97 06/10/22 06:32 103 H 18 119/73 06/10/22 05:52 98.8 F 105 H 18 128/87 97 06/10/22 05:35 110 H 17 96 06/10/22 05:00 106 H 17 94 L 06/10/22 04:26 109 H 17 94 L 06/10/22 03:57 97.9 F 115 H 16 120/89 90 L 06/10/22 03:28 19 06/10/22 03:21 98.0 F 108 H 19 108/72 98 Intake and Output 06/09/22 06/10/22 06/10/22 22:59 06:59 14:59 Intake Total 316 Balance 316 Intake: IV 100 Intake, IV Titration 216 Amount Alteplase 10 mg In Sodium 3 Chloride 0.9% 90 ml @ 1 MG/HR 10 mls/hr IV .Q10H [facility] Rx#:[id number] Alteplase 10 mg In Sodium 3 Chloride 0.9% 90 ml @ 1 MG/HR 10 mls/hr IV .Q10H [facility] Rx#:[id number] Heparin Sod,Pork in 0.45% 0 NaCl 25,000 unit In 0.45 % NaCl 1 250ml.bag @ 2.5 mls/hr IV .Q24H [facility] Rx#: [id number] Sodium Chloride 0.9% 1, 105 000 ml @ 35 mls/hr IV . Q24H [facility] Rx#:[id number] Sodium Chloride 0.9% 1, 105 000 ml @ 35 mls/hr IV . Q24H [facility] Rx#:[id number] Other: Weight 121.109 kg Results CBC & Chem 7: 06/10/22 12:46 06/10/22 03:43 Labs: Abnormal Lab Results - Last 24 Hours (Table) 06/10/22 06/10/22 06/10/22 Range/Units 03:43 03:43 03:43 Hgb (13.0-17.5) gm/dL Hct (39.0-53.0) % Plt Count 132 L (150-450) k/uL PT 12.2 H (9.0-12.0) sec INR 1.2 H (<1.2) APTT (22.0-30.0) sec D-Dimer 19.98 H (<0.60) mg/L FEU Glucose 161 H (74-99) mg/dL POC Glucose (mg/dL) (70-110) mg/dL Troponin I (0.000-0.034) ng/mL Coronavirus (PCR) (Not Detectd) 06/10/22 06/10/22 06/10/22 Range/Units 03:43 04:26 12:39 Hgb (13.0-17.5) gm/dL Hct (39.0-53.0) % Plt Count (150-450) k/uL PT (9.0-12.0) sec INR (<1.2) APTT (22.0-30.0) sec D-Dimer (<0.60) mg/L FEU Glucose (74-99) mg/dL POC Glucose (mg/dL) 118 H (70-110) mg/dL Troponin I 0.458 H* (0.000-0.034) ng/mL Coronavirus (PCR) Detected A (Not Detectd) 06/10/22 06/10/22 06/10/22 Range/Units 12:46 12:46 12:46 Hgb 12.4 L (13.0-17.5) gm/dL Hct 37.5 L (39.0-53.0) % Plt Count 111 L (150-450) k/uL PT (9.0-12.0) sec INR (<1.2) APTT 41.7 H (22.0-30.0) sec D-Dimer (<0.60) mg/L FEU Glucose (74-99) mg/dL POC Glucose (mg/dL) (70-110) mg/dL Troponin I 0.664 H* (0.000-0.034) ng/mL Coronavirus (PCR) (Not Detectd) Thrombosis Risk Factor Assmnt - Choose All That Apply Any of the Below Risk Factors Present?: No Other Risk Factors: Yes
[2022-06-10 17:07] LABS: Appearance,Urine Clear (Clear); Bilirubin,Urine Negative (Negative); Blood,Urine Small (Negative); Color,Urine Yellow; Glucose,Urine (UA) Negative (Negative); Ketones,Urine Trace (Negative); Leukocyte Esterase,Urine Negative (Negative); Mucus,Urine Occasional /hpf; Nitrite,Urine Negative (Negative); Protein,Urine 1+ (Negative); RBC,Urine 5 /hpf (0-5); Urobilinogen,Urine <2.0 mg/dL (<2.0); WBC,Urine 1 /hpf (0-5)
[2022-06-10 17:08] LABS: Specific Gravity,Urine 1.048 (1.001-1.035)
[2022-06-10] MEDS: ATORVASTATIN 40 MG TAB PO SCH (20:14)
[2022-06-10] MEDS: FAMOTIDINE 20 MG TAB PO SCH (20:14)
[2022-06-11 06:41] LABS: Basophils % (A) 1 %; Eosinophils # (A) 0.1 k/uL (0-0.7); Eosinophils % (A) 2 %; HCT 35.8 % (39.0-53.0); HGB 11.8 gm/dL (13.0-17.5); Hypochromasia Slight; Lymphocytes # (A) 1.2 k/uL (1.0-4.8); Lymphocytes % (A) 20 %; MCH 28.2 pg (25.0-35.0); MCHC 32.9 g/dL (31.0-37.0); MCV 85.7 fL (80.0-100.0); Mean Platelet Volume 9.9; Monocytes # (A) 0.5 k/uL (0-1.0); Monocytes % (A) 8 %; Neutrophils # (A) 4.2 k/uL (1.3-7.7); Neutrophils % (A) 69 %; RBC 4.18 m/uL (4.30-5.90); RDW 13.7 % (11.5-15.5); WBC 6.1 k/uL (3.8-10.6)
[2022-06-11 06:55] LABS: African American GFR (CKD) >90 (>60 ml/min/1.73 sqM); Anion Gap 8 mmol/L; Blood Urea Nitrogen 15 mg/dL (9-20); Calcium 8.2 mg/dL (8.4-10.2); Carbon Dioxide 25 mmol/L (22-30); Chloride 105 mmol/L (98-107); Glucose 114 mg/dL (74-99); Non-African American GFR(CKD) >90 (>60 ml/min/1.73 sqM); Potassium 4.2 mmol/L (3.5-5.1); Sodium 138 mmol/L (137-145)
[2022-06-11 07:17] LABS: Partial Thromboplastin Time 28.1 sec (22.0-30.0)
[2022-06-11 07:23] LABS: Platelet Count 95 k/uL (150-450)
--- NOTE | 2022-06-11 08:26 | P.PN ---
Subjective Progress Note Date: 06/11/22 Principal diagnosis: Pulmonary embolism, status post EKos catheter placement bilateral pulmonary arteries with TPA infusion. Patient is evaluated after undergoing pulmonary artery catheter placement with infusion of TPA. Indicates his breathing is significantly improved. He voices no new complaints/issues. Objective - Vital Signs Vital signs: Vital Signs Temp 98.1 F 06/11/22 04:00 Pulse 81 06/11/22 07:00 Resp 29 H 06/11/22 07:00 BP 118/72 06/11/22 07:00 Pulse Ox 94 L 06/11/22 07:00 FiO2 Intake & Output 06/10/22 06/11/22 06/11/22 18:59 06:59 18:59 Intake Total 604 1080 Output Total 350 500 Balance 254 580 Weight 124.5 kg Intake: IV 100 1080 NS through TPA port 240 Sodium Chloride 0.9% 1, 420 000 ml @ 35 mls/hr IV . Q24H [facility] Rx#:[id number] Sodium Chloride 0.9% 1, 420 000 ml @ 35 mls/hr IV . Q24H [facility] Rx#:[id number] Intake, IV Titration 504 Amount Alteplase 10 mg In Sodium 7 Chloride 0.9% 90 ml @ 1 MG/HR 10 mls/hr IV .Q10H [facility] Rx#:[id number] Alteplase 10 mg In Sodium 7 Chloride 0.9% 90 ml @ 1 MG/HR 10 mls/hr IV .Q10H [facility] Rx#:[id number] Heparin Sod,Pork in 0.45% 0 NaCl 25,000 unit In 0.45 % NaCl 1 250ml.bag @ 2.5 mls/hr IV .Q24H [facility] Rx#: [id number] Sodium Chloride 0.9% 1, 245 000 ml @ 35 mls/hr IV . Q24H [facility] Rx#:[id number] Sodium Chloride 0.9% 1, 245 000 ml @ 35 mls/hr IV . Q24H [facility] Rx#:[id number] Output: Urine 350 500 Other: # Voids 0 - Exam Patient is awake, alert and in no apparent distress. Right femoral vein puncture wound site is unremarkable. All tubing/catheters and sheaths are removed from the right femoral area and pressure was held at the puncture site until no evidence of bleeding was noted. - Labs CBC & Chem 7: 06/11/22 06:08 06/11/22 06:08 Labs: Abnormal Lab Results - Last 24 Hours (Table) 06/10/22 06/10/22 06/10/22 Range/Units 12:39 12:46 12:46 RBC (4.30-5.90) m/uL Hgb (13.0-17.5) gm/dL Hct (39.0-53.0) % Plt Count (150-450) k/uL APTT 41.7 H (22.0-30.0) sec Glucose (74-99) mg/dL POC Glucose (mg/dL) 118 H (70-110) mg/dL Calcium (8.4-10.2) mg/dL Troponin I 0.664 H* (0.000-0.034) ng/mL Ur Specific [place] (1.001-1.035) Urine Protein (Negative) Urine Ketones (Negative) Urine Blood (Negative) Urine Mucus (None) /hpf 06/10/22 06/10/22 06/10/22 Range/Units 12:46 17:00 18:00 RBC (4.30-5.90) m/uL Hgb 12.4 L (13.0-17.5) gm/dL Hct 37.5 L (39.0-53.0) % Plt Count 111 L (150-450) k/uL APTT (22.0-30.0) sec Glucose (74-99) mg/dL POC Glucose (mg/dL) (70-110) mg/dL Calcium (8.4-10.2) mg/dL Troponin I 0.627 H* (0.000-0.034) ng/mL Ur Specific [place] 1.048 H (1.001-1.035) Urine Protein 1+ H (Negative) Urine Ketones Trace H (Negative) Urine Blood Small H (Negative) Urine Mucus Occasional H (None) /hpf 06/11/22 06/11/22 Range/Units 06:08 06:08 RBC 4.18 L (4.30-5.90) m/uL Hgb 11.8 L (13.0-17.5) gm/dL Hct 35.8 L (39.0-53.0) % Plt Count 95 L (150-450) k/uL APTT (22.0-30.0) sec Glucose 114 H (74-99) mg/dL POC Glucose (mg/dL) (70-110) mg/dL Calcium 8.2 L (8.4-10.2) mg/dL Troponin I (0.000-0.034) ng/mL Ur Specific [place] (1.001-1.035) Urine Protein (Negative) Urine Ketones (Negative) Urine Blood (Negative) Urine Mucus (None) /hpf Assessment and Plan Assessment: #1: Status post TPA infusion for bilateral submassive pulmonary emboli. Plan: #1: Removal of all catheters/sheaths/wires as they relate to pulmonary artery TPA infusion. #2: Bed rest for 30 minutes, afterwards he may be up and ambulatory as he chooses. #3: Initiate oral anticoagulation therapy. Time with Patient: Less than 30
[2022-06-11] MEDS ORDERED: RIVAROXABAN 15 MG TAB PO SCH (08:30)
[2022-06-11] MEDS: HEPARIN SOD,PORK IN 0.45% NACL 25,000 UNIT in 0.45% NACL 1 250ML.BAG IV SCH (08:42)
[2022-06-11] MEDS: RIVAROXABAN 15 MG TAB PO SCH ×2 (08:59→19:43)
[2022-06-11] MEDS: CHOLECALCIFEROL 25 MCG (1000 IU) TABLET PO SCH (08:59)
[2022-06-11] MEDS: HYDROcodone/APAP 10-325MG 1 EACH TAB PO PRN ×2 (08:59→14:36)
[2022-06-11] MEDS: METOPROLOL TARTRATE 50 MG TAB PO SCH ×2 (08:59→19:43)
[2022-06-11] MEDS: ASCORBIC ACID 500 MG TAB PO SCH (08:59)
[2022-06-11] MEDS: ZINC SULFATE 220 MG CAP PO SCH (08:59)
--- NOTE | 2022-06-11 10:59 | P.PN ---
Subjective Progress Note Date: 06/11/22 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, patient had an upper respiratory tract infection so he checked himself at home after he developed to have a sore throat and cough minimal phlegm production came back positive for cold that he start taken some NyQuil, 2 days later developed to have a significant shortness of breath and generalized weakness and could not walk 2 steps without getting out of breath he felt almost going to pass out, apparently the patient had run out of his Coumadin and he stated that he had co ntacted his pharmacy and my office without any response, I do not have any message in my office in regard to his Coumadin patient presented to the emergency department at [facility] today with significant shortness of breath and he was seen and evaluated in the emergency department and he was found to have a saddle pulmonary emboli for which the open hearth laborer was activated for EKOS that was performed by Dr. Adrianne lechuga and pulmonary medicine was consult with, the patient was admitted to the ICU after that, patient is laying down in bed in no apparent distress, is comfortable, he continues to be on oxygen support, he continues to have some pleuritic chest pain, he has no hemoptysis, he has no abdominal pain. Patient underwent venous Doppler both lower extremity is the right lower ex tremity did not show evidence of DVT however the left lower extremity showed evidence of acute DVT of the proximal and mid popliteal vein, patient also had a CTA of the chest that showed multiple central bilateral pulmonary emboli with saddle embolism, and right-sided ventricular strain pattern, patient had an echocardiogram that showed severe dilatation of the right ventricle with moderate pulmonary hypertension. 06/11: Patient is laying down in bed in no apparent distress, he denies any chest pain, he continues to have minimal shortness breath, his oxygenation is about 98%, currently not requiring oxygen supplement, he will have his catheter removed from his groin today, we will continue with current treatment plan, patient will be staying in the ICU overnight, then he can be transferred to telemetry unit tomorrow morning. REVIEW OF SYSTEMS: Constitutional: No documented fever, no chills, no night sweats. No weight change. No weakness, fatigue or lethargy. No daytime sleepiness. HEENT: No headache. No blurred vision or double vision, no loss of vision. No loss of Hearing, no ringing in the ears, no dizziness. No nasal drainage or congestion. No epistaxis. No sore throat. Lungs: positive for shortness of breath, occasional cough, with minimal sputum production. No wheezing. Reports dyspnea with activity. Cardiovascular: positive for pleuritic chest pain, positive for lower extremity edema. positive for palpitations. No paroxysmal nocturnal dyspnea. No orthop yoel. positive for lightheadedness and dizziness, positive for presyncope. Abdominal: Reports abdominal pain. No nausea, vomiting. No diarrhea. No constipation. No bloody or tarry stools reports loss of appetite. Genitourinary: No dysuria, increased frequency, urgency. No urinary retention. Musculoskeletal: No myalgias. No muscle weakness, no gait dysfunction, no frequent falls. positive for back pain. No neck pain. Integumentary: No wounds, no lesions. No rash or pruritus. No unusual bruising. No change in hair or nails. Neurologic: No aphasia. No facial droop. No change in mentation. No head injury. No headache. No paralysis. No paresthesia. Psychiatric: No depression. No anxiety. No mood swings. Endocrine: No abnormal blood sugars. No weight change. PHYSICAL EXAMINATION: General: 7-year-old male in bed in minimal respiratory distress. HEENT: Head is atraumatic, normocephalic, pupils were equal round reactive to light and recommendation, extraocular muscle movement were intact, sclera nonicteric, conjunctivae were pale, mucous membranes of the mouth are somewhat dry. Neck: Supple, no JVP, normal carotid upstroke bilaterally, no lymphadenopathy. Chest: Decreased breath sounds at the bases, few rhonchi, no expiratory wheezes, no chest wall tenderness, no intercostal retractions. Heart: First heart sound is normal, second heart sound is normal there is no gallop or murmur Abdomen: Soft, nontender, nondistended, positive bowel sounds. Extremities: There is +1 edema no calf tenderness DP +2 bilaterally. Neurologic examination: Patient is awake alert and oriented X 3, cranial nerves II-12 appear grossly intact, muscle power were 5 out of 5 in upper extremities and 5 out of 5 in bilateral lower extremities, deep tendon reflexes normal bilaterally. ASSESSMENT AND PLAN: 1. Bilateral saddle pulmonary emboli. Status post EKOS. Patient is currently on heparin infusion, we'll transition the patient to Xarelto or Eliquis if insurance covers otherwise he go back and his Coumadin to keep his INR between 2-3. 2. Hypertension and hypertensive cardiovascular disease. Continue patient on metoprolol 50 mg orally twice every day, monitor the patient blood pressure very closely. 3. Hyperlipidemia. Continue patient on atorvastatin 40 mg orally once every day. 4. GERD with Esophagitis Continue famotidine 20 mg orally once every day. 5. Spondylosis of the lumbar spine. Continue patient on hydrocodone 10/325 mg one tablet orally every 6 hours as needed. 6. Left lower extremity proximal and mid popliteal DVT. Continue heparin drip for now. 7. Moderate pulmonary hypertension with acute dilatation of the right ventricle. Continue patient on metoprolol 50 mg orally twice every day, monitor the patient's history closely. 8. obstructive sleep apnea. Patient will need to be maintained on CPAP machine. 9. History of DVT and hypercoagulable state. Continue on anticoagulation for life. 10. Paroxysmal atrial fibrillation. Continue patient on metoprolol 50 mg orally twice every day, continue heparin drip and transitioned to oral anticoagulation. 11. DVT prophylaxis. Continue with heparin drip for now 12. GI prophylaxis. Continue famotidine 20 mg once every day. 13. Anxiety disorder. Patient is currently not on Lexapro. 14. COVID-19 positive PCR patient had Covid a week ago. And he does not appear to have any severe symptoms. However Covid is the culprit for his hypercoagulable state beside stopping his anticoagulation. Objective - Vital Signs Vital signs: Vital Signs Temp 97.9 F 06/11/22 08:00 Pulse 85 06/11/22 09:00 Resp 15 06/11/22 09:00 BP 117/74 06/11/22 09:00 Pulse Ox 94 L 06/11/22 09:00 FiO2 Intake & Output 06/10/22 06/11/22 06/11/22 18:59 06:59 18:59 Intake Total 604 1080 90 Output Total 350 500 Balance 254 580 90 Weight 124.5 kg Intake: IV 100 1080 90 NS through TPA port 240 20 Sodium Chloride 0.9% 1, 420 35 000 ml @ 35 mls/hr IV . Q24H [facility] Rx#:[id number] Sodium Chloride 0.9% 1, 420 35 000 ml @ 35 mls/hr IV . Q24H [facility] Rx#:[id number] Intake, IV Titration 504 Amount Alteplase 10 mg In Sodium 7 Chloride 0.9% 90 ml @ 1 MG/HR 10 mls/hr IV .Q10H [facility] Rx#:[id number] Alteplase 10 mg In Sodium 7 Chloride 0.9% 90 ml @ 1 MG/HR 10 mls/hr IV .Q10H [facility] Rx#:[id number] Heparin Sod,Pork in 0.45% 0 NaCl 25,000 unit In 0.45 % NaCl 1 250ml.bag @ 2.5 mls/hr IV .Q24H [facility] Rx#: [id number] Sodium Chloride 0.9% 1, 245 000 ml @ 35 mls/hr IV . Q24H [facility] Rx#:[id number] Sodium Chloride 0.9% 1, 245 000 ml @ 35 mls/hr IV . Q24H [facility] Rx#:[id number] Output: Urine 350 500 Other: Voiding Method Urinal # Voids 0 0 - Labs CBC & Chem 7: 06/11/22 06:08 06/11/22 06:08 Labs: Abnormal Lab Results - Last 24 Hours (Table) 06/10/22 06/10/22 06/10/22 Range/Units 12:39 12:46 12:46 RBC (4.30-5.90) m/uL Hgb (13.0-17.5) gm/dL Hct (39.0-53.0) % Plt Count (150-450) k/uL APTT 41.7 H (22.0-30.0) sec Glucose (74-99) mg/dL POC Glucose (mg/dL) 118 H (70-110) mg/dL Calcium (8.4-10.2) mg/dL Troponin I 0.664 H* (0.000-0.034) ng/mL Ur Specific [place] (1.001-1.035) Urine Protein (Negative) Urine Ketones (Negative) Urine Blood (Negative) Urine Mucus (None) /hpf 06/10/22 06/10/22 06/10/22 Range/Units 12:46 17:00 18:00 RBC (4.30-5.90) m/uL Hgb 12.4 L (13.0-17.5) gm/dL Hct 37.5 L (39.0-53.0) % Plt Count 111 L (150-450) k/uL APTT (22.0-30.0) sec Glucose (74-99) mg/dL POC Glucose (mg/dL) (70-110) mg/dL Calcium (8.4-10.2) mg/dL Troponin I 0.627 H* (0.000-0.034) ng/mL Ur Specific [place] 1.048 H (1.001-1.035) Urine Protein 1+ H (Negative) Urine Ketones Trace H (Negative) Urine Blood Small H (Negative) Urine Mucus Occasional H (None) /hpf 06/11/22 06/11/22 Range/Units 06:08 06:08 RBC 4.18 L (4.30-5.90) m/uL Hgb 11.8 L (13.0-17.5) gm/dL Hct 35.8 L (39.0-53.0) % Plt Count 95 L (150-450) k/uL APTT (22.0-30.0) sec Glucose 114 H (74-99) mg/dL POC Glucose (mg/dL) (70-110) mg/dL Calcium 8.2 L (8.4-10.2) mg/dL Troponin I (0.000-0.034) ng/mL Ur Specific [place] (1.001-1.035) Urine Protein (Negative) Urine Ketones (Negative) Urine Blood (Negative) Urine Mucus (None) /hpf
--- NOTE | 2022-06-11 12:34 | P.PN ---
Subjective Progress Note Date: 06/11/22 Principal diagnosis: Acute Massive pulmonary embolus This is a 61-year-old white male with previous history of deep vein thrombosis, patient has been on Coumadin for many years, however he stopped taking Coumadin for the last 2 weeks. Mostly because the patient ran out of medications. And yesterday he had a sudden near syncopal episode, so she will shortness of breath, felt very lightheaded, and he almost collapsed in front of his family. Patient was caught prior to falling. EMS brought in the patient to the ER, his O2 saturation initially was 85%, patient was placed on oxygen at 4 L, and he had a CT angiogram of the chest, clearly showed saddle pulmonary embolism. Stat echocardiogram demonstrated right heart strain. Patient was seen by vascular surgery and he is scheduled to undergo EKOS thrombolysis today by vascular surgery. I saw this patient in the ER, and I fully agree that the patient should undergo thrombolysis as recommended by vascular surgery. D-dimer was 19.98. Troponin was 0.458. In addition to all of this, patient had positive COVID-19 infection, patient has been feeling a bit congested with minimal cough over the last 1 week. Reevaluated today on 06/11/22, patient continues to do well, relatively asymptomatic, underwent uneventful ekos thrombolysis yesterday, patient is on room air, not in any distress, hemodynamically stable, he will be started on Xarelto today. His catheter has been removed, and we plan to transfer the patient to a monitor bed on selective today. WBC count is 6.1 hemoglobin 11.8 electrolytes are normal renal profile is normal Objective - Vital Signs Vital signs: Vital Signs Temp 97.9 F 06/11/22 08:00 Pulse 80 06/11/22 11:00 Resp 18 06/11/22 11:00 BP 119/89 06/11/22 11:00 Pulse Ox 94 L 06/11/22 11:00 FiO2 Intake & Output 06/10/22 06/11/22 06/11/22 18:59 06:59 18:59 Intake Total 604 1080 90 Output Total 350 500 250 Balance 254 580 -160 Weight 124.5 kg Intake: IV 100 1080 90 NS through TPA port 240 20 Sodium Chloride 0.9% 1, 420 35 000 ml @ 35 mls/hr IV . Q24H [facility] Rx#:[id number] Sodium Chloride 0.9% 1, 420 35 000 ml @ 35 mls/hr IV . Q24H [facility] Rx#:[id number] Intake, IV Titration 504 Amount Alteplase 10 mg In Sodium 7 Chloride 0.9% 90 ml @ 1 MG/HR 10 mls/hr IV .Q10H [facility] Rx#:[id number] Alteplase 10 mg In Sodium 7 Chloride 0.9% 90 ml @ 1 MG/HR 10 mls/hr IV .Q10H [facility] Rx#:[id number] Heparin Sod,Pork in 0.45% 0 NaCl 25,000 unit In 0.45 % NaCl 1 250ml.bag @ 2.5 mls/hr IV .Q24H [facility] Rx#: [id number] Sodium Chloride 0.9% 1, 245 000 ml @ 35 mls/hr IV . Q24H [facility] Rx#:[id number] Sodium Chloride 0.9% 1, 245 000 ml @ 35 mls/hr IV . Q24H [facility] Rx#:[id number] Output: Urine 350 500 250 Other: Voiding Method Urinal # Voids 0 1 - Exam Physical Exam: Revealed a 61-year-old white male in no distress, on room air Head: Atraumatic, normocephalic. HEENT:[Neck is supple.] [No neck masses.] [No thyromegaly.] [No JVD.] Chest: [Clear throughout, no crackles, no rhonchi, no wheezes.] Cardiac Exam: [Normal S1 and S2, no S3 gallop, no murmur.] Abdomen: [Soft, nontender, no megaly, no rebound, no guarding, normal bowel so unds.] Extremities: [No clubbing, no edema, no cyanosis.] Neurological Exam: [No focal neurologic deficit.] Alert and oriented 3 no gross focal. Psychiatric: Normal mood, affect and normal status examination. Skin: No rashes. Musculoskeletal: No deformities and no limitation in range of motion. - Labs CBC & Chem 7: 06/11/22 06:08 06/11/22 06:08 Labs: Abnormal Lab Results - Last 24 Hours (Table) 06/10/22 06/10/22 06/10/22 Range/Units 12:39 12:46 12:46 RBC (4.30-5.90) m/uL Hgb (13.0-17.5) gm/dL Hct (39.0-53.0) % Plt Count (150-450) k/uL APTT 41.7 H (22.0-30.0) sec Glucose (74-99) mg/dL POC Glucose (mg/dL) 118 H (70-110) mg/dL Calcium (8.4-10.2) mg/dL Troponin I 0.664 H* (0.000-0.034) ng/mL Ur Specific [place] (1.001-1.035) Urine Protein (Negative) Urine Ketones (Negative) Urine Blood (Negative) Urine Mucus (None) /hpf 06/10/22 06/10/22 06/10/22 Range/Units 12:46 17:00 18:00 RBC (4.30-5.90) m/uL Hgb 12.4 L (13.0-17.5) gm/dL Hct 37.5 L (39.0-53.0) % Plt Count 111 L (150-450) k/uL APTT (22.0-30.0) sec Glucose (74-99) mg/dL POC Glucose (mg/dL) (70-110) mg/dL Calcium (8.4-10.2) mg/dL Troponin I 0.627 H* (0.000-0.034) ng/mL Ur Specific [place] 1.048 H (1.001-1.035) Urine Protein 1+ H (Negative) Urine Ketones Trace H (Negative) Urine Blood Small H (Negative) Urine Mucus Occasional H (None) /hpf 06/11/22 06/11/22 Range/Units 06:08 06:08 RBC 4.18 L (4.30-5.90) m/uL Hgb 11.8 L (13.0-17.5) gm/dL Hct 35.8 L (39.0-53.0) % Plt Count 95 L (150-450) k/uL APTT (22.0-30.0) sec Glucose 114 H (74-99) mg/dL POC Glucose (mg/dL) (70-110) mg/dL Calcium 8.2 L (8.4-10.2) mg/dL Troponin I (0.000-0.034) ng/mL Ur Specific [place] (1.001-1.035) Urine Protein (Negative) Urine Ketones (Negative) Urine Blood (Negative) Urine Mucus (None) /hpf Assessment and Plan Assessment: Impression: Acute bilateral pulmonary embolism with right ventricular strain, status post ekos thrombolysis, postoperative day #1 History of lower extremity DVT, on long-term anticoagulation therapy/Coumadin until 2 weeks ago COVID-19 infection, incidental finding. Most likely contributing to his hypercoagulability and pulmonary embolism not to mention the patient is known to have history of DVT and has been on Coumadin until 2 weeks ago Benign essential hypertension Obstructive sleep apnea syndrome Generalized anxiety disorder Dyslipidemia Recommendation: Transfer patient out of the ICU, started on Xarelto and he will remain on Xarelto lifetime. COVID-19 cocktail, I believe the COVID-19 infection is rather an incidental finding, patient did not have significant symptoms to suggest severe infection. However his COVID-19 infection may be a major contributing factor to his hyp ercoagulability at this point and massive thromboembolic disease We will continue to follow Time with Patient: Less than 30
[2022-06-11] MEDS: ESCITALOPRAM 10 MG TAB PO SCH (17:02)
[2022-06-11] MEDS: ATORVASTATIN 40 MG TAB PO SCH (19:43)
[2022-06-11] MEDS: FAMOTIDINE 20 MG TAB PO SCH (19:43)
--- NOTE | 2022-06-12 08:26 | P.PN ---
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, patient had an upper respiratory tract infection so he checked himself at home after he developed to have a sore throat and cough minimal phlegm production came back positive for cold that he start taken some NyQuil, 2 days later developed to have a significant shortness of breath and generalized weakness and could not walk 2 steps without getting out of breath he felt almost going to pass out, apparently the patient had run out of his Coumadin and he stated that he had co ntacted his pharmacy and my office without any response, I do not have any message in my office in regard to his Coumadin patient presented to the emergency department at [facility] today with significant shortness of breath and he was seen and evaluated in the emergency department and he was found to have a saddle pulmonary emboli for which the tutorial laboratory supervisor was activated for EKOS that was performed by Dr. Adrianne lechuga and pulmonary medicine was consult with, the patient was admitted to the ICU after that, patient is laying down in bed in no apparent distress, is comfortable, he continues to be on oxygen support, he continues to have some pleuritic chest pain, he has no hemoptysis, he has no abdominal pain. Patient underwent venous Doppler both lower extremity is the right lower ex tremity did not show evidence of DVT however the left lower extremity showed evidence of acute DVT of the proximal and mid popliteal vein, patient also had a CTA of the chest that showed multiple central bilateral pulmonary emboli with saddle embolism, and right-sided ventricular strain pattern, patient had an echocardiogram that showed severe dilatation of the right ventricle with moderate pulmonary hypertension. 06/11: Patient is laying down in bed in no apparent distress, he denies any chest pain, he continues to have minimal shortness breath, his oxygenation is about 98%, currently not requiring oxygen supplement, he will have his catheter removed from his groin today, we will continue with current treatment plan, patient will be staying in the ICU overnight, then he can be transferred to telemetry unit tomorrow morning. 06/12: Patient remains in intensive care unit waiting for a bed on the cardiac stepdown unit. We will downgrade patient to [facility] with telemetry. Patient is complaining of some anxiety, shortness of breath seems to be controlled. Patient denies having chest pain. He is on room air with pulse ox is 92%. His been afebrile, heart rate in the 70s, blood pressure 118/85. school bus monitor has been a sinus rhythm. Patient has been started on Xarelto and we will send a prescription to his pharmacy to check coverage in anticipation of discharge home tomorrow. REVIEW OF SYSTEMS: Constitutional: No documented fever, no chills, no night sweats. No weight change. No weakness, fatigue or lethargy. No daytime sleepiness. HEENT: No headache. No blurred vision or double vision, no loss of vision. No loss of Hearing, no ringing in the ears, no dizziness. No nasal drainage or congestion. No epistaxis. No sore throat. Lungs: positive for shortness of breath, occasional cough, with minimal sputum production. No wheezing. Reports dyspnea with activity. Cardiovascular: positive for pleuritic chest pain, positive for lower extremity edema. positive for palpitations. No paroxysmal nocturnal dyspnea. No orthopnea. positive for lightheadedness and dizziness, positive for presyncope. Abdominal: Reports abdominal pain. No nausea, vomiting. No diarrhea. No constipation. No bloody or tarry stools reports loss of appetite. Genitourinary: No dysuria, increased frequency, urgency. No urinary retention. Musculoskeletal: No myalgias. No muscle weakness, no gait dysfunction, no frequent falls. positive for back pain. No neck pain. Integumentary: No wounds, no lesions. No rash or pruritus. No unusual bruising. No change in hair or nails. Neurologic: No aphasia. No facial droop. No change in mentation. No head injury. No headache. No paralysis. No paresthesia. Psychiatric: No depression. No anxiety. No mood swings. Endocrine: No abnormal blood sugars. No weight change. PHYSICAL EXAMINATION: General: 7-year-old male in bed in minimal respiratory distress. HEENT: Head is atraumatic, normocephalic, pupils were equal round, conjunctivae were pale, mucous membranes of the mouth are somewhat dry. Neck: Supple, no JVP, normal carotid upstroke bilaterally, no lymphadenopathy. Chest: Decreased breath sounds at the bases, few rhonchi, no expiratory wheezes, no chest wall tenderness, no intercostal retractions. Heart: First heart sound is normal, second heart sound is normal there is no gallop or murmur Abdomen: Soft, nontender, nondistended, positive bowel sounds. Extremities: There is +1 edema no calf tenderness DP +2 bilaterally. Neurologic examination: Patient is awake alert and oriented X 3, cranial nerves II-12 appear grossly intact. ASSESSMENT AND PLAN: 1. Bilateral saddle pulmonary emboli. Status post EKOS. Patient is continued on Xarelto and prescription sent to his pharmacy to check if insurance coverage. If no insurance coverage been he will go back to his Coumadin to keep his INR between 2-3. 2. Hypertension and hypertensive cardiovascular disease. Continue patient on metoprolol 50 mg orally twice every day, monitor the patient blood pressure very closely. 3. Hyperlipidemia. Continue patient on atorvastatin 40 mg orally once every day. 4. GERD with Esophagitis Continue famotidine 20 mg orally once every day. 5. Spondylosis of the lumbar spine. Continue patient on hydrocodone 10/325 mg one tablet orally every 6 hours as needed. 6. Left lower extremity proximal and mid popliteal DVT. Continue Xarelto. 7. Moderate pulmonary hypertension with acute dilatation of the right ventricle. Continue patient on metoprolol 50 mg orally twice every day, monitor the patient's history closely. 8. obstructive sleep apnea. Patient will need to be maintained on CPAP machine. 9. History of DVT and hypercoagulable state. Continue on anticoagulation for life. 10. Paroxysmal atrial fibrillation. Continue patient on metoprolol 50 mg orally twice every day, continue Xarelto. 11. DVT prophylaxis. Continue Xarelto. 12. GI prophylaxis. Continue famotidine 20 mg once every day. 13. Generalized anxiety disorder. Patient is currently not on Lexapro. 14. COVID-19 positive PCR patient had Covid a week ago. And he does not appear to have any severe symptoms. However Covid is the culprit for his hypercoagulable state beside stopping his anticoagulation. DISCHARGE PLAN Home on Sunday Impression and plan of care have been directed as dictated by the signing physician. Unique Martins nurse practitioner acting as scribe for signing physician. Objective - Vital Signs Vital signs: Vital Signs Temp 98.9 F 06/12/22 04:00 Pulse 72 06/12/22 04:00 Resp 18 06/12/22 08:00 BP 118/85 06/12/22 04:00 Pulse Ox 92 L 06/12/22 04:00 FiO2 Intake & Output 06/11/22 06/12/22 06/12/22 18:59 06:59 18:59 Intake Total 90 0 Output Total 450 900 Balance -360 -900 Weight 120.2 kg Intake: IV 90 0 NS through TPA port 20 0 Sodium Chloride 0.9% 1, 35 000 ml @ 35 mls/hr IV . Q24H [facility] Rx#:[id number] Sodium Chloride 0.9% 1, 35 000 ml @ 35 mls/hr IV . Q24H [facility] Rx#:[id number] Output: Urine 450 900 Other: Voiding Method Urinal # Voids 1 1 # Bowel Movements 1 - Labs CBC & Chem 7: 06/11/22 06:08 06/11/22 06:08
[2022-06-12] MEDS: ASCORBIC ACID 500 MG TAB PO SCH (08:57)
[2022-06-12] MEDS: METOPROLOL TARTRATE 50 MG TAB PO SCH ×2 (08:57→21:47)
[2022-06-12] MEDS: ESCITALOPRAM 10 MG TAB PO SCH (08:57)
[2022-06-12] MEDS: CHOLECALCIFEROL 25 MCG (1000 IU) TABLET PO SCH (08:57)
[2022-06-12] MEDS: RIVAROXABAN 15 MG TAB PO SCH ×2 (08:57→21:49)
[2022-06-12] MEDS: ZINC SULFATE 220 MG CAP PO SCH (08:57)
--- NOTE | 2022-06-12 11:59 | P.PN ---
Subjective Progress Note Date: 06/12/22 This is a 61-year-old white male with previous history of deep vein thrombosis, patient has been on Coumadin for many years, however he stopped taking Coumadin for the last 2 weeks. Mostly because the patient ran out of medications. And yesterday he had a sudden near syncopal episode, so she will shortness of breath, felt very lightheaded, and he almost collapsed in front of his family. Patient was caught prior to falling. EMS brought in the patient to the ER, his O2 saturation initially was 85%, patient was placed on oxygen at 4 L, and he had a CT angiogram of the chest, clearly showed saddle pulmonary embolism. Stat echocardiogram demonstrated right heart strain. Patient was seen by vascular surgery and he is scheduled to undergo EKOS thrombolysis today by vascular surgery. I saw this patient in the ER, and I fully agree that the patient should undergo thrombolysis as recommended by vascular surgery. D-dimer was 19.98. Troponin was 0.458. In addition to all of this, patient had positive COVID-19 infection, patient has been feeling a bit congested with minimal cough over the last 1 week. Reevaluated today on 06/11/22, patient continues to do well, relatively asymptomatic, underwent uneventful ekos thrombolysis yesterday, patient is on room air, not in any distress, hemodynamically stable, he will be started on Xarelto today. His catheter has been removed, and we plan to transfer the patient to a monitor bed on selective today. WBC count is 6.1 hemoglobin 11.8 electrolytes are normal renal profile is normal The patient is seen today 06/12/2022 in follow-up in the intensive care unit. He is awake and alert in no acute distress. He is maintaining good O2 saturatio ns in the 90s on room air. No IV fluids. He's been transitioned to Xarelto. He is status post EKOS procedure on 06/10/2022. He is also found to be positive for COVID-19 infection remains on vitamin supplements. Objective - Vital Signs Vital signs: Vital Signs Temp 98.9 F 06/12/22 04:00 Pulse 72 06/12/22 04:00 Resp 18 06/12/22 08:00 BP 118/85 06/12/22 04:00 Pulse Ox 92 L 06/12/22 04:00 FiO2 Intake & Output 06/11/22 06/12/22 06/12/22 18:59 06:59 18:59 Intake Total 90 0 Output Total 450 900 Balance -360 -900 Weight 120.2 kg Intake: IV 90 0 NS through TPA port 20 0 Sodium Chloride 0.9% 1, 35 000 ml @ 35 mls/hr IV . Q24H [facility] Rx#:[id number] Sodium Chloride 0.9% 1, 35 000 ml @ 35 mls/hr IV . Q24H [facility] Rx#:[id number] Output: Urine 450 900 Other: Voiding Method Urinal # Voids 1 1 # Bowel Movements 1 - Exam GENERAL EXAM: Alert, pleasant 61-year-old male patient, on room air, comfortable in no apparent distress. HEAD: Normocephalic. EYES: Normal reaction of pupils, equal size. NOSE: Clear with pink turbinates. THROAT: No erythema or exudates. NECK: No masses, no JVD. CHEST: No chest wall deformity. LUNGS: Equal air entry with no crackles, wheeze, rhonchi or dullness. CVS: S1 and S2 normal with no audible murmur, regular rhythm. ABDOMEN: No hepatosplenomegaly, normal bowel sounds, no guarding or rigidity. SPINE: No scoliosis or deformity SKIN: No rashes CENTRAL NERVOUS SYSTEM: No focal deficits, tone is normal in all 4 extremities. EXTREMITIES: Puncture sites clean and dry. There is no peripheral edema. No clubbing, no cyanosis. Peripheral pulses are intact. - Labs CBC & Chem 7: 06/11/22 06:08 06/11/22 06:08 Assessment and Plan Assessment: Acute bilateral pulmonary embolism with right ventricular strain, status post ekos thrombolysis, postoperative day #2 History of lower extremity DVT, on long-term anticoagulation therapy/Coumadin until 2 weeks ago COVID-19 infection, incidental finding. Most likely contributing to his hypercoagulability and pulmonary embolism not to mention the patient is known to have history of DVT and has been on Coumadin until 2 weeks ago Benign essential hypertension Obstructive sleep apnea syndrome Generalized anxiety disorder Dyslipidemia Plan: The patient was seen and evaluated Stable and on room air Transitioned to Xarelto Recommend lifelong anticoagulation Stable for transfer out of the ICU Regular medical floor with telemetry We'll continue to follow I have personally seen and examined the patient, performed the documentation and the assessment and plan as written. Number of minutes spent on the visit: 10.
--- NOTE | 2022-06-12 16:27 | CDI ---
Documentation Clarification Form Date: 06/12/2022 03:56:12 PM From: Shruti Esquivel RN, CCDS Email: [email or web address] Admit Date: 06/10/2022 05:57:00 AM Patient Name: Masha Florence Visit Number: [id number] Discharge Date: ATTENTION: The Clinical Documentation Specialists (CDI) and [facility] Coding Staff appreciate your assistance in clarifying documentation. Please respond to the clarification below the line at the bottom and electronically sign. The CDI & [facility] Coding staff will review the response and follow-up if needed. Please note: Queries are made part of the Legal Health Record. If you have any questions, please contact the author of this message via ITS. Dr. Radha Landaverde Acute bilateral saddle pulmonary embolism with right ventricular strain is documented in the progress notes. Additional clarification regarding the pulmonary embolism is requested. History/Risk Factors: +Covid, HTN, GERD, DVT, on Coumadin but has been without for at least a week. Near syncopal episode at home and hypoxic. Clinical Indicators: SOB 06/10 BNP: 324, 06/10 troponin 0.627 06/10 Echo results: EF 50-55%, severe right ventricular dilatation. Severely reduced right ventricular global systolic function. There is right ventricular enlargement consistent with right ventricular volume overload. Moderate pulmonary hypertension 06/10 CTA: multiple BL central pulmonary emboli with saddle embolism Pulmonary Consult: "Acute bilateral pulmonary embolism with right ventricular strain." Treatment: supplemental oxygen 06/10 Procedure: He was found to have bilateral saddle PE with heart strain seen on labs with elevated troponin as well as echo. Ultrasound-guided right common femoral vein access with placement of bilateral thrombolytic EKOS catheters and initiation of thrombolysis. Please further clarify if there is an additional diagnosis: [ X ] Acute cor pulmonale due to saddle pulmonary embolism [ ] Unable to determine [ ] Other, please specify MTDD
[2022-06-12] MEDS: ATORVASTATIN 40 MG TAB PO SCH (21:46)
[2022-06-12] MEDS: FAMOTIDINE 20 MG TAB PO SCH (21:46)
[2022-06-13] MEDS: RIVAROXABAN 15 MG TAB PO SCH (09:32)
[2022-06-13] MEDS: ESCITALOPRAM 10 MG TAB PO SCH (09:32)
[2022-06-13] MEDS: METOPROLOL TARTRATE 50 MG TAB PO SCH (09:32)
[2022-06-13] MEDS: ZINC SULFATE 220 MG CAP PO SCH (09:32)
[2022-06-13] MEDS: ASCORBIC ACID 500 MG TAB PO SCH (09:32)
[2022-06-13] MEDS: CHOLECALCIFEROL 25 MCG (1000 IU) TABLET PO SCH (09:32)
[2022-06-13 09:39] VITALS: BP 139/86; PULSE 75; RESP 17; TEMP 98
--- NOTE | 2022-06-13 11:04 | P.PN ---
Subjective Progress Note Date: 06/13/22 This is a 61-year-old white male with previous history of deep vein thrombosis, patient has been on Coumadin for many years, however he stopped taking Coumadin for the last 2 weeks. Mostly because the patient ran out of medications. And yesterday he had a sudden near syncopal episode, so she will shortness of breath, felt very lightheaded, and he almost collapsed in front of his family. Patient was caught prior to falling. EMS brought in the patient to the ER, his O2 saturation initially was 85%, patient was placed on oxygen at 4 L, and he had a CT angiogram of the chest, clearly showed saddle pulmonary embolism. Stat echocardiogram demonstrated right heart strain. Patient was seen by vascular surgery and he is scheduled to undergo EKOS thrombolysis today by vascular surgery. I saw this patient in the ER, and I fully agree that the patient should undergo thrombolysis as recommended by vascular surgery. D-dimer was 19.98. Troponin was 0.458. In addition to all of this, patient had positive COVID-19 infection, patient has been feeling a bit congested with minimal cough over the last 1 week. Reevaluated today on 06/11/22, patient continues to do well, relatively asymptomatic, underwent uneventful ekos thrombolysis yesterday, patient is on room air, not in any distress, hemodynamically stable, he will be started on Xarelto today. His catheter has been removed, and we plan to transfer the patient to a monitor bed on selective today. WBC count is 6.1 hemoglobin 11.8 electrolytes are normal renal profile is normal The patient is seen today 06/12/2022 in follow-up in the intensive care unit. He is awake and alert in no acute distress. He is maintaining good O2 saturatio ns in the 90s on room air. No IV fluids. He's been transitioned to Xarelto. He is status post EKOS procedure on 06/10/2022. He is also found to be positive for COVID-19 infection remains on vitamin supplements. The patient is seen today 06/13/2022 in follow-up in the intensive care unit. He is sitting up at the bedside. Awake and alert in no acute distress. Denies any shortness of breath, cough or congestion. No hemoptysis. No chest pain. He is maintaining good O2 saturations in the 90s on room air. No IV fluids. He is anxious to go home. He's been transitioned to Xarelto. Objective - Vital Signs Vital signs: Vital Signs Temp 98 F 06/13/22 08:00 Pulse 75 06/13/22 08:00 Resp 17 06/13/22 08:00 BP 139/86 06/13/22 08:00 Pulse Ox 95 06/13/22 08:00 FiO2 Intake & Output 06/12/22 06/13/22 06/13/22 18:59 06:59 18:59 Intake Total 0 540 Output Total 750 900 Balance -750 -360 Intake: IV 0 0 NS through TPA port 0 0 Oral 540 Output: Urine 750 900 Other: Voiding Method Urinal # Voids 0 - Exam GENERAL EXAM: Alert, very pleasant 61-year-old male patient, on room air, comfortable in no apparent distress. HEAD: Normocephalic. EYES: Normal reaction of pupils, equal size. NOSE: Clear with pink turbinates. THROAT: No erythema or exudates. NECK: No masses, no JVD. CHEST: No chest wall deformity. LUNGS: Equal air entry with no crackles, wheeze, rhonchi or dullness. CVS: S1 and S2 normal with no audible murmur, regular rhythm. ABDOMEN: No hepatosplenomegaly, normal bowel sounds, no guarding or rigidity. SPINE: No scoliosis or deformity SKIN: No rashes CENTRAL NERVOUS SYSTEM: No focal deficits, tone is normal in all 4 extremities. EXTREMITIES: Puncture sites clean and dry. There is no peripheral edema. No clubbing, no cyanosis. Peripheral pulses are intact. - Labs CBC & Chem 7: 06/11/22 06:08 06/11/22 06:08 Assessment and Plan Assessment: Acute bilateral pulmonary embolism with right ventricular strain, status post ekos thrombolysis, postoperative day #3 History of lower extremity DVT, on long-term anticoagulation therapy/Coumadin until 2 weeks ago COVID-19 infection, incidental finding. Most likely contributing to his hypercoagulability and pulmonary embolism not to mention the patient is known to have history of DVT and has been on Coumadin until 2 weeks ago Benign essential hypertension Obstructive sleep apnea syndrome Generalized anxiety disorder Dyslipidemia Plan: The patient was seen and evaluated Stable and on room air Transitioned to Xarelto, recommend lifelong Cleared for discharge from the pulmonary system I have personally seen and examined the patient, performed the documentation and the assessment and plan as written. Number of minutes spent on the visit: 10.
--- NOTE | 2022-06-13 12:30 | P.PN ---
Subjective Progress Note Date: 06/13/22 Principal diagnosis: PE doing well. states breathing well. No other complaints Objective - Vital Signs Vital signs: Vital Signs Temp 98 F 06/13/22 08:00 Pulse 75 06/13/22 08:00 Resp 17 06/13/22 08:00 BP 139/86 06/13/22 08:00 Pulse Ox 95 06/13/22 08:00 FiO2 Intake & Output 06/12/22 06/13/22 06/13/22 18:59 06:59 18:59 Intake Total 0 540 Output Total 750 900 400 Balance -750 -360 -400 Intake: IV 0 0 NS through TPA port 0 0 Oral 540 Output: Urine 750 900 400 Other: Voiding Method Urinal # Voids 0 - Constitutional General appearance: Present: cooperative - Respiratory Respiratory: bilateral: CTA - Gastrointestinal General gastrointestinal: Present: soft - Neurologic Neurologic: Present: CNII-XII intact. Absent: focal deficits - Psychiatric Psychiatric: Present: A&O x's 3, appropriate affect - Labs CBC & Chem 7: 06/11/22 06:08 06/11/22 06:08 Assessment and Plan Assessment: 1. Acute bilateral PE with right heart strain 2. History of lower extremity DVT 3. COVID positive 4. HTN Plan: Doing well. Continue oral anticoagulation. Will re-eval prn.
--- NOTE | 2022-06-13 13:07 | P.DS ---
Providers Date of admission: 06/10/22 05:57 Expected date of discharge: 06/13/22 Attending physician: Radha Landaverde Consults: 06/10/22 05:57 Consult Physician Stat Consulting Provider: Wally Lagunas Consult Reason/Comments: Saddle pulmonary embolism Do you want consulting provider notified?: Already Contacted Consult Physician Urgent Consulting Provider: Huseyin Mejía Consult Reason/Comments: eval for EKOS, saddle pulmonary embolism Do you want consulting provider notified?: Already Contacted Primary care physician: Radha Landaverde Hospital Course: 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, patient had an upper respiratory tract infection so he checked himself at home after he developed to have a sore throat and cough minimal phlegm production came back positive for cold that he start taken some NyQuil, 2 days later developed to have a significant shortness of breath and generalized weakness and could not walk 2 steps without getting out of breath he felt almost going to pass out, apparently the patient had run out of his Coumadin and he stated that he had contacted his pharmacy and my office without any response, I do not have any message in my office in regard to his Coumadin patient presented to the emergency department at [facility] today with significant shortness of breath and he was seen and evaluated in the emergency department and he was found to have a saddle pulmonary emboli for which the clinical laboratory scientist was activated for EKOS that was performed by Dr. Adrianne lechuga and pulmonary medicine was consult with, the patient was admitted to the ICU after that, patient is laying down in bed in no apparent distress, is comfortable, he continues to be on oxygen s upport, he continues to have some pleuritic chest pain, he has no hemoptysis, he has no abdominal pain. Patient underwent venous Doppler both lower extremity is the right lower extremity did not show evidence of DVT however the left lower extremity showed evidence of acute DVT of the proximal and mid popliteal vein, patient also had a CTA of the chest that showed multiple central bilateral pulmonary emboli with saddle embolism, and right-sided ventricular strain pattern, patient had an echocardiogram that showed severe dilatation of the right ventricle with moderate pulmonary hypertension. 06/11: Patient is laying down in bed in no apparent distress, he denies any chest pain, he continues to have minimal shortness breath, his oxygenation is about 98%, currently not requiring oxygen supplement, he will have his catheter removed from his groin today, we will continue with current treatment plan, patient will be staying in the ICU overnight, then he can be transferred to telemetry unit tomorrow morning. 06/12: Patient remains in intensive care unit waiting for a bed on the cardiac stepdown unit. We will downgrade patient to [facility] with telemetry. Patient is complaining of some anxiety, shortness of breath seems to be controlled. Patient denies having chest pain. He is on room air with pulse ox is 92%. His been afebrile, heart rate in the 70s, blood pressure 118/85. athletic monitor has been a sinus rhythm. Patient has been started on Xarelto and we will send a prescription to his pharmacy to check coverage in anticipation of discharge home tomorrow. Discharge diagnoses: 1. Bilateral saddle pulmonary emboli. Status post EKOS. 2. Hypertension and hypertensive cardiovascular disease. 3. Hyperlipidemia. 4. GERD with Esophagitis 5. Spondylosis of the lumbar spine. 6. Left lower extremity proximal and mid popliteal DVT. 7. Moderate pulmonary hypertension with acute dilatation of the right ventricle. 8. obstructive sleep apnea. Patient will need to be maintained on CPAP machine. 9. History of DVT and hypercoagulable state. 10. Paroxysmal atrial fibrillation. 11. Generalized anxiety disorder. 14. COVID-19 positive PCR p Patient Condition at Discharge: Serious Plan - Discharge Summary Discharge Rx Participant: No New Discharge Prescriptions: New Rivaroxaban [Xarelto Starter Pack] 0 mg PO DIRECTED 30 Days #1 packet No Action Metoprolol Tartrate [Lopressor] 50 mg PO BID HYDROcodone/APAP 10-325MG [[place] 10] 1 tab PO QID Atorvastatin Calcium [Lipitor] 40 mg PO HS Discharge Medication List HYDROcodone/APAP 10-325MG [[place] 10] 1 tab PO QID 11/22/14 [History] Metoprolol Tartrate [Lopressor] 50 mg PO BID 11/22/14 [History] Atorvastatin Calcium [Lipitor] 40 mg PO HS 06/10/22 [History] Rivaroxaban [Xarelto Starter Pack] 0 mg PO DIRECTED 30 Days #1 packet 06/12/22 [Rx] Follow up Appointment(s)/Referral(s): Wally Lagunas MD [STAFF PHYSICIAN] - 06/19/22 1:00 pm Radha Landaverde MD [Primary Care Provider] - 1 Week Huseyin Mejía DO [Doctor of Osteopathic Medicine] - 06/27/22 2:30 pm Discharge Disposition: HOME SELF-CARE
== END 2022-06-13 14:42 | disposition home or self-care (01) | DRG 166 ==
LOC: EC 03:19 → 2SICU 05:57
PROVIDERS: ADMIT Internal Medicine; ATTEND Internal Medicine
PROC: 02FQ3Z0 Fragmentation of Right Pulmonary Artery, Percutaneous Approach, Ultrasonic (ICD-10-PCS; 2022-06-10)
PROC: 3E06317 Introduction of Other Thrombolytic into Central Artery, Percutaneous Approach (ICD-10-PCS; 2022-06-10)
PROC: 3E06317 Introduction of Other Thrombolytic into Central Artery, Percutaneous Approach (ICD-10-PCS; 2022-06-10)
PROC: 02FR3Z0 Fragmentation of Left Pulmonary Artery, Percutaneous Approach, Ultrasonic (ICD-10-PCS; principal; 2022-06-10 10:27)
DX: I26.02 Saddle embolus of pulmonary artery with acute cor pulmonale (principal); U07.1 COVID-19; I82.432 Acute embolism and thrombosis of left popliteal vein; I82.4Y2 Acute embolism and thrombosis of unspecified deep veins of left proximal lower extremity; D68.59 Other primary thrombophilia; I27.20 Pulmonary hypertension, unspecified; I11.9 Hypertensive heart disease without heart failure; I08.1 Rheumatic disorders of both mitral and tricuspid valves; E78.5 Hyperlipidemia, unspecified; G47.33 Obstructive sleep apnea (adult) (pediatric); K21.00 Gastro-esophageal reflux disease with esophagitis, without bleeding; M47.816 Spondylosis without myelopathy or radiculopathy, lumbar region; T45.516A Underdosing of anticoagulants, initial encounter; G89.29 Other chronic pain; R09.02 Hypoxemia; R77.8 Other specified abnormalities of plasma proteins; R00.0 Tachycardia, unspecified; F41.1 Generalized anxiety disorder; I48.0 Paroxysmal atrial fibrillation; M25.50 Pain in unspecified joint; Z28.310 Unvaccinated for COVID-19; Z79.01 Long term (current) use of anticoagulants; Z91.128 Patient's intentional underdosing of medication regimen for other reason; Z79.891 Long term (current) use of opiate analgesic; Z79.82 Long term (current) use of aspirin; Z79.899 Other long term (current) drug therapy
CPT/HCPCS: 36415; 61645; 71046; 71275; 80048; 80053; 81001; 83605; 83735; 83880; 84484; 85025; 85379; 85384; 85610; 85730; 87502; 87635; 93005; 93306; 93970; 96374; 99285

== ENCOUNTER 2022-08-06 00:09 | Emergency (ER) | payer BC, OTHER ==
[2022-08-06 00:23] LABS: Glucose,Whole Blood 115 mg/dL (70-110)
[2022-08-06 00:25] VITALS: TEMP 97.4
--- NOTE | 2022-08-06 00:25 | ED ---
Anxiety HPI - General Chief Complaint: Anxiety Stated Complaint: Anxiety Time Seen by Provider: 08/06/22 00:25 Source: patient Mode of arrival: EMS - Related Data Home Medications: Home Medications Medication Instructions Recorded Confirmed HYDROcodone/APAP 10-325MG [[place] 1 tab PO QID 11/22/14 06/10/22 10] Metoprolol Tartrate [Lopressor] 50 mg PO BID 11/22/14 06/10/22 Atorvastatin Calcium [Lipitor] 40 mg PO HS 06/10/22 06/10/22 Previous Rx's Medication Instructions Recorded Rivaroxaban [Xarelto Starter Pack] 0 mg PO DIRECTED 30 Days #1 06/12/22 packet Allergies/Adverse Reactions: Allergies Allergy/AdvReac Type Severity Reaction Status Date / Time No Known Allergies Allergy Verified 11/22/14 12:39 Review of Systems ROS Statement: Those systems with pertinent positive or pertinent negative responses have been documented in the HPI. ROS Other: All systems not noted in ROS Statement are negative. Past Medical History Past Medical History: Deep Vein Thrombosis (DVT), GERD/Reflux, Hypertension History of Any Multi-Drug Resistant Organisms: None Reported Past Surgical History: Adenoidectomy, Hernia Repair, Orthopedic Surgery, Tonsillectomy Additional Past Surgical History / Comment(s): hx of chronic back pain seizures vrs panic attack Past Psychological History: No Psychological Hx Reported Past Alcohol Use History: None Reported Past Drug Use History: None Reported Course Vital Signs 08/06/22 08/06/22 08/06/22 00:14 01:24 02:24 Temperature 97.4 F L Pulse Rate 76 70 84 Respiratory 22 16 16 Rate Blood Pressure 138/80 162/97 137/79 O2 Sat by Pulse 100 98 98 Oximetry - Reevaluation(s) Reevaluation #1: 08/06/22 medical record is reviewed Patient symptoms are improved here in the ER Patient informed of results and questions answered Medical Decision Making - Lab Data Result diagrams: 08/06/22 01:32 08/06/22 01:32 Lab Results 08/06/22 08/06/22 08/06/22 Range/Units 00:18 01:32 01:32 WBC 7.8 (3.8-10.6) k/uL RBC 5.20 (4.30-5.90) m/uL Hgb 14.7 (13.0-17.5) gm/dL Hct 43.6 (39.0-53.0) % MCV 83.8 (80.0-100.0) fL MCH 28.4 (25.0-35.0) pg MCHC 33.8 (31.0-37.0) g/dL RDW 13.9 (11.5-15.5) % Plt Count 129 L (150-450) k/uL MPV 9.8 Neutrophils % 80 % Lymphocytes % 11 % Monocytes % 7 % Eosinophils % 1 % Basophils % 0 % Neutrophils # 6.2 (1.3-7.7) k/uL Lymphocytes # 0.8 L (1.0-4.8) k/uL Monocytes # 0.5 (0-1.0) k/uL Eosinophils # 0.1 (0-0.7) k/uL Basophils # 0.0 (0-0.2) k/uL PT 9.8 (9.0-12.0) sec INR 0.9 (<1.2) APTT 23.7 (22.0-30.0) sec Sodium (137-145) mmol/L Potassium (3.5-5.1) mmol/L Chloride (98-107) mmol/L Carbon Dioxide (22-30) mmol/L Anion Gap mmol/L BUN (9-20) mg/dL Creatinine (0.66-1.25) mg/dL Est GFR (CKD-EPI)AfAm (>60 ml/min/1.73 sqM) Est GFR (CKD-EPI)NonAf (>60 ml/min/1.73 sqM) Glucose (74-99) mg/dL POC Glucose (mg/dL) 115 H (70-110) mg/dL POC Glu Screen Printing Machine Operator ID Jacki Monsivais Calcium (8.4-10.2) mg/dL Total Bilirubin (0.2-1.3) mg/dL AST (17-59) U/L ALT (4-49) U/L Alkaline Phosphatase (38-126) U/L Ammonia (<30) umol/L Troponin I (0.000-0.034) ng/mL Total Protein (6.3-8.2) g/dL Albumin (3.5-5.0) g/dL Urine Opiates Screen (NotDetected) Ur Oxycodone Screen (NotDetected) Urine Methadone Screen (NotDetected) Ur Propoxyphene Screen (NotDetected) Ur Barbiturates Screen (NotDetected) U Tricyclic Antidepress (NotDetected) Ur Phencyclidine Scrn (NotDetected) Ur Amphetamines Screen (NotDetected) U Methamphetamines Scrn (NotDetected) U Benzodiazepines Scrn (NotDetected) Urine Cocaine Screen (NotDetected) U Marijuana (THC) Screen (NotDetected) Serum Alcohol mg/dL 08/06/22 08/06/22 08/06/22 Range/Units 01:32 01:32 01:32 WBC (3.8-10.6) k/uL RBC (4.30-5.90) m/uL Hgb (13.0-17.5) gm/dL Hct (39.0-53.0) % MCV (80.0-100.0) fL MCH (25.0-35.0) pg MCHC (31.0-37.0) g/dL RDW (11.5-15.5) % Plt Count (150-450) k/uL MPV Neutrophils % % Lymphocytes % % Monocytes % % Eosinophils % % Basophils % % Neutrophils # (1.3-7.7) k/uL Lymphocytes # (1.0-4.8) k/uL Monocytes # (0-1.0) k/uL Eosinophils # (0-0.7) k/uL Basophils # (0-0.2) k/uL PT (9.0-12.0) sec INR (<1.2) APTT (22.0-30.0) sec Sodium 137 (137-145) mmol/L Potassium 4.1 (3.5-5.1) mmol/L Chloride 107 (98-107) mmol/L Carbon Dioxide 19 L (22-30) mmol/L Anion Gap 11 mmol/L BUN 19 (9-20) mg/dL Creatinine 0.73 (0.66-1.25) mg/dL Est GFR (CKD-EPI)AfAm >90 (>60 ml/min/1.73 sqM) Est GFR (CKD-EPI)NonAf >90 (>60 ml/min/1.73 sqM) Glucose 116 H (74-99) mg/dL POC Glucose (mg/dL) (70-110) mg/dL POC Glu Screen Printing Machine Operator ID Calcium 9.2 (8.4-10.2) mg/dL Total Bilirubin 0.5 (0.2-1.3) mg/dL AST 24 (17-59) U/L ALT 23 (4-49) U/L Alkaline Phosphatase 145 H (38-126) U/L Ammonia <9 (<30) umol/L Troponin I <0.012 (0.000-0.034) ng/mL Total Protein 7.7 (6.3-8.2) g/dL Albumin 4.6 (3.5-5.0) g/dL Urine Opiates Screen (NotDetected) Ur Oxycodone Screen (NotDetected) Urine Methadone Screen (NotDetected) Ur Propoxyphene Screen (NotDetected) Ur Barbiturates Screen (NotDetected) U Tricyclic Antidepress (NotDetected) Ur Phencyclidine Scrn (NotDetected) Ur Amphetamines Screen (NotDetected) U Methamphetamines Scrn (NotDetected) U Benzodiazepines Scrn (NotDetected) Urine Cocaine Screen (NotDetected) U Marijuana (THC) Screen (NotDetected) Serum Alcohol <10 mg/dL 08/06/22 Range/Units 02:10 WBC (3.8-10.6) k/uL RBC (4.30-5.90) m/uL Hgb (13.0-17.5) gm/dL Hct (39.0-53.0) % MCV (80.0-100.0) fL MCH (25.0-35.0) pg MCHC (31.0-37.0) g/dL RDW (11.5-15.5) % Plt Count (150-450) k/uL MPV Neutrophils % % Lymphocytes % % Monocytes % % Eosinophils % % Basophils % % Neutrophils # (1.3-7.7) k/uL Lymphocytes # (1.0-4.8) k/uL Monocytes # (0-1.0) k/uL Eosinophils # (0-0.7) k/uL Basophils # (0-0.2) k/uL PT (9.0-12.0) sec INR (<1.2) APTT (22.0-30.0) sec Sodium (137-145) mmol/L Potassium (3.5-5.1) mmol/L Chloride (98-107) mmol/L Carbon Dioxide (22-30) mmol/L Anion Gap mmol/L BUN (9-20) mg/dL Creatinine (0.66-1.25) mg/dL Est GFR (CKD-EPI)AfAm (>60 ml/min/1.73 sqM) Est GFR (CKD-EPI)NonAf (>60 ml/min/1.73 sqM) Glucose (74-99) mg/dL POC Glucose (mg/dL) (70-110) mg/dL POC Glu Screen Printing Machine Operator ID Calcium (8.4-10.2) mg/dL Total Bilirubin (0.2-1.3) mg/dL AST (17-59) U/L ALT (4-49) U/L Alkaline Phosphatase (38-126) U/L Ammonia (<30) umol/L Troponin I (0.000-0.034) ng/mL Total Protein (6.3-8.2) g/dL Albumin (3.5-5.0) g/dL Urine Opiates Screen Detected H (NotDetected) Ur Oxycodone Screen Not Detected (NotDetected) Urine Methadone Screen Not Detected (NotDetected) Ur Propoxyphene Screen Not Detected (NotDetected) Ur Barbiturates Screen Not Detected (NotDetected) U Tricyclic Antidepress Not Detected (NotDetected) Ur Phencyclidine Scrn Not Detected (NotDetected) Ur Amphetamines Screen Not Detected (NotDetected) U Methamphetamines Scrn Not Detected (NotDetected) U Benzodiazepines Scrn Not Detected (NotDetected) Urine Cocaine Screen Not Detected (NotDetected) U Marijuana (THC) Screen Not Detected (NotDetected) Serum Alcohol mg/dL - EKG Data -: EKG Interpreted by Me (EKG sinus 72 [place] 161 QRS 100 QTc 448) Disposition Clinical Impression: Acute anxiety Disposition: HOME SELF-CARE Condition: Good Instructions (If sedation given, give patient instructions): Generalized Anxiety Disorder (ED) Is patient prescribed a controlled substance at d/c from ED?: No Referrals: Radha Landaverde MD [Primary Care Provider] - 1-2 days Time of Disposition: 02:30
[2022-08-06] MEDS ORDERED: SODIUM CHLORIDE 0.9% 1,000 ML IV ONE (00:45)
[2022-08-06] MEDS ORDERED: LORazepam 2 MG/ML INJ IV STA (00:45)
[2022-08-06 01:46] LABS: Basophils % (A) 0 %; Eosinophils # (A) 0.1 k/uL (0-0.7); Eosinophils % (A) 1 %; HCT 43.6 % (39.0-53.0); HGB 14.7 gm/dL (13.0-17.5); Lymphocytes # (A) 0.8 k/uL (1.0-4.8); Lymphocytes % (A) 11 %; MCH 28.4 pg (25.0-35.0); MCHC 33.8 g/dL (31.0-37.0); MCV 83.8 fL (80.0-100.0); Mean Platelet Volume 9.8; Monocytes # (A) 0.5 k/uL (0-1.0); Monocytes % (A) 7 %; Neutrophils # (A) 6.2 k/uL (1.3-7.7); Neutrophils % (A) 80 %; Platelet Count 129 k/uL (150-450); RDW 13.9 % (11.5-15.5); WBC 7.8 k/uL (3.8-10.6)
[2022-08-06 01:57] LABS: ALT 23 U/L (4-49); AST 24 U/L (17-59); African American GFR (CKD) >90 (>60 ml/min/1.73 sqM); Albumin 4.6 g/dL (3.5-5.0); Alcohol <10 mg/dL; Alkaline Phosphatase 145 U/L (38-126); Anion Gap 11 mmol/L; Blood Urea Nitrogen 19 mg/dL (9-20); Calcium 9.2 mg/dL (8.4-10.2); Carbon Dioxide 19 mmol/L (22-30); Chloride 107 mmol/L (98-107); Glucose 116 mg/dL (74-99); Non-African American GFR(CKD) >90 (>60 ml/min/1.73 sqM); Potassium 4.1 mmol/L (3.5-5.1); Sodium 137 mmol/L (137-145); Total Bilirubin 0.5 mg/dL (0.2-1.3); Total Protein 7.7 g/dL (6.3-8.2)
[2022-08-06 02:03] LABS: INR 0.9 (<1.2); Partial Thromboplastin Time 23.7 sec (22.0-30.0); Prothrombin Time 9.8 sec (9.0-12.0)
--- NOTE | 2022-08-06 02:16 | CT ---
EXAMINATION TYPE: CT brain wo con DATE OF EXAM: 08/06/2022 COMPARISON: None HISTORY: MULTIPLE SEIZURES, NO H/O SEIZURES CT DLP: 1192.7 mGycm Automated exposure control for dose reduction was used. Images of the brain obtained with no contrast. Ventricles have normal size. There is no mass effect or midline shift. No sign of intracranial hemorr alla. Calvarium is intact. There is normal aeration of the mastoid sinuses. IMPRESSION: Negative unenhanced head CT scan.
[2022-08-06 02:28] LABS: Amphetamine Screen,Urine Not Detected (NotDetected); Barbiturate Screen,Urine Not Detected (NotDetected); Benzodiazepines Screen,Urine Not Detected (NotDetected); Cocaine Screen,Urine Not Detected (NotDetected); Methadone Screen, Urine Not Detected (NotDetected); Opiate Screen,Urine Detected (NotDetected); Oxycodone Screen, Urine Not Detected (NotDetected); Phencyclidine Screen,Urine Not Detected (NotDetected); Tricyclic Antidepressant,Urine Not Detected (NotDetected); Urn Cannabinoid Scrn Not Detected (NotDetected)
[2022-08-06 02:49] VITALS: RESP 16
[2022-08-06 02:50] VITALS: BP 137/79; PULSE 84
== END 2022-08-06 02:50 | disposition home or self-care (01) ==
LOC: EC 00:09
DX: F41.9 Anxiety disorder, unspecified (principal); Z86.718 Personal history of other venous thrombosis and embolism; K21.9 Gastro-esophageal reflux disease without esophagitis; I10 Essential (primary) hypertension; Z79.899 Other long term (current) drug therapy
CPT/HCPCS: 36415; 80053; 82140; 84484; 85025; 85610; 85730; 80306; 80320; 70450; 99284; 96374; 96361; J2060

== ENCOUNTER → 2022-08-18 | Outpatient (CLI) | payer BC, OTHER ==
--- NOTE | 2022-08-18 21:18 | MR ---
EXAMINATION TYPE: MR brain wo/w con DATE OF EXAM: 08/18/2022 5:34 PM CLINICAL INDICATION:Male, 61 years old with history of G45.9 TRANSIENT CEREBRAL ISCHEMIC ATTACK; COMPARISON: 08/06/2022 TECHNIQUE: Multi planar, multi sequence imaging was performed through the brain including: T1, T2, In version recovery, susceptibility weighted imaging and gradient echo imaging and Diffusion weighted im aging. The patient was then given intravenous contrast and multi planar, T1 fat-saturation images wer e obtained. IV Contrast: 12 cc Gadavist FINDINGS: The mukherjee-white junctions, ventricular system, basal cisterns appear unremarkable. Diffusion-weighted imaging shows no evidence of restricted diffusion to suggest acute/subacute infarct. Intracranial art erial flow voids are maintained. Midline structures show no abnormality. The susceptibility weighted images do not reveal any evidence for micro-hemorrhage. After administration of gadolinium, no abnorm al enhancement is seen. The bone marrow signal is within normal limits. Paranasal sinuses and mastoid air cells: Mild scattered paranasal sinus disease. Visualized orbits: Orbital contents are intact. IMPRESSION: No evidence of intracranial mass, acute/subacute infarct, or abnormal enhancement.
== END | disposition home or self-care (01) ==
LOC: RADMRIMAIN 16:42
PROVIDERS: ATTEND Internal Medicine
DX: G45.9 Transient cerebral ischemic attack, unspecified (principal)
CPT/HCPCS: 70553; A9585

== ENCOUNTER → 2022-08-23 | Outpatient (CLI) | payer BC, OTHER ==
--- NOTE | 2022-08-23 12:32 | US ---
EXAMINATION TYPE: US carotid duplex BILAT DATE OF EXAM: 08/23/2022 COMPARISON: NONE CLINICAL HISTORY: G45.9 TRANSIENT CEREBRAL ISCHEMIC ATTACK, UNSPECIF. TIA, lightheadedness TECHNIQUE: Carotid duplex ultrasound examination. Indirect Doppler criteria was utilized. FINDINGS: EXAM MEASUREMENTS: RIGHT: Peak Systolic Velocity (PSV) cm/sec ----- Right CCA: 69.4 ----- Right ICA: 106.9 ----- Right ECA: 101.7 ICA/CCA ratio: 1.5 RIGHT: End Diastole cm/sec ----- Right CCA: 20.6 ----- Right ICA: 51.2 ----- Right ECA: 16.3 LEFT: Peak Systolic Velocity (PSV) cm/sec ----- Left CCA: 83.1 ----- Left ICA: 100.7 ----- Left ECA: 108.4 ICA/CCA ratio: 1.2 LEFT: End Diastole cm/sec ----- Left CCA: 24.8 ----- Left ICA: 45.7 ----- Left ECA: 14.9 VERTEBRALS (direction of flow): Right Vertebral: Antegrade Left Vertebral: Antegrade Rhythm: Normal CANNONEER NOTES: Mild plaque bilateral bifurcations. No evidence of significant stenosis IMPRESSION: Atheromatous plaquing without significant flow-limiting stenosis based on velocities. Criteria for Assigning % of Stenosis / Diameter reduction (Estimation based on the indirect measurements of the internal carotid artery velocities (ICA PSV). 1. Normal (no stenosis)=ICA PSV < 125 cm/s: ratio < 2.0: ICA EDV<40 cm/s. 2. Less than 50% stenosis=ICA PSV < 125 cm/s: ratio < 2.0: ICA EDV<40 cm/s. 3. 50 to 69% stenosis=ICA PSV of 125 to 230 cm/s: ration 2.0 ? 4.0: ICA EDV 40-100 cm/s. 4. Greater than 70% stenosis to near occlusion= ICA PSV > 230 cm/s: ratio > 4.0: ICA EDV > 100 cm/s. 5. Near occlusion= ICA PSV velocities may be low or undetectable: variable ratio and ICA EDV. 6. Total occlusion=unable to detect flow.
== END | disposition home or self-care (01) ==
LOC: RADUSWWP 09:48
PROVIDERS: ATTEND Internal Medicine
DX: I65.23 Occlusion and stenosis of bilateral carotid arteries (principal)
CPT/HCPCS: 93880

== ENCOUNTER 2022-08-25 18:39 | Emergency (ER) | payer BC, OTHER ==
[2022-08-25 18:47] VITALS: TEMP 97.9
--- NOTE | 2022-08-25 19:27 | ED ---
Chest Pain HPI - General Chief Complaint: Chest Pain Stated Complaint: Chest Pain Time Seen by Provider: 08/25/22 18:57 Source: patient, family, EMS, RN notes reviewed Mode of arrival: EMS Limitations: no limitations - History of Present Illness Initial Comments: This is a 61-year-old male who presents to the emergency department for hot flashes and palpitations. While he was at work today, he started to develop feelings of a sharp chest pain/pressure with a hot flash. He sat down and said that he needed help. One of his coworkers subsequently called EMS to bring him to the hospital. Believes that this episode lasted approximately 20 minutes. His does note that he recently found out that he and his coworkers will not be paid for their work over the holidays, which has been stressful for him. They are unsure if this episode was related to that. He was here in July for a similar problem, however at that time, he was experiencing memory loss. There was concern that he may have had a TIA. Lab work and a computed tomography scan of the brain were performed, which revealed no irregularities and the patient was discharged home. Symptoms were thought to be related to a panic attack. He did recently have an MRI of the brain and an ultrasound of the carotid arteries, however they've yet to receive the results. The patient is working with Dr. Landaverde. his PCP, to try and figure out what may be the culprit for his symptoms, however they have yet to come up with any answers. Additionally, his states that he has been experiencing hot flashes intermittently over the last 20 years. Episodes last between 10 seconds to up to 20 minutes at a time. He denies any abdominal pain or associated nausea/vomiting when these occur. At this time, he is not experiencing any chest pain, palpitations, or problems with his memory. Denies any fevers, chills, sore throat, cough, dyspnea, abdominal pain, nausea, vomiting, diarrhea, back pain, or headaches. MD Complaint: chest pain Onset: during rest Pain Location: substernal Quality: sharp Consistency: now resolved - Related Data Home Medications Medication Instructions Recorded Confirmed HYDROcodone/APAP 10-325MG [[place] 1 tab PO QID 11/22/14 08/25/22 10] Metoprolol Tartrate [Lopressor] 50 mg PO BID 11/22/14 08/25/22 Atorvastatin Calcium [Lipitor] 40 mg PO HS 06/10/22 08/25/22 Baclofen 10 mg PO TID PRN 08/25/22 08/25/22 Escitalopram [Lexapro] 10 mg PO DAILY 08/25/22 08/25/22 Famotidine [Pepcid] 20 mg PO HS PRN 08/25/22 08/25/22 Rivaroxaban [Xarelto] 20 mg PO DAILY 08/25/22 08/25/22 Allergies Allergy/AdvReac Type Severity Reaction Status Date / Time No Known Allergies Allergy Verified 08/25/22 20:09 Review of Systems ROS Statement: Those systems with pertinent positive or pertinent negative responses have been documented in the HPI. ROS Other: All systems not noted in ROS Statement are negative. Past Medical History Past Medical History: Deep Vein Thrombosis (DVT), GERD/Reflux, Hypertension History of Any Multi-Drug Resistant Organisms: None Reported Past Surgical History: Adenoidectomy, Hernia Repair, Orthopedic Surgery, Tonsillectomy Additional Past Surgical History / Comment(s): hx of chronic back pain seizures vrs panic attack Past Psychological History: No Psychological Hx Reported Smoking Status: Never smoker Past Alcohol Use History: Occasional Past Drug Use History: None Reported General Exam Limitations: no limitations General appearance: alert, in no apparent distress Head exam: Present: atraumatic, normocephalic, normal inspection Eye exam: Present: normal appearance, PERRL, EOMI. Absent: scleral icterus, conjunctival injection, periorbital swelling Respiratory exam: Present: normal lung sounds bilaterally. Absent: respiratory distress, wheezes, rales, rhonchi, stridor Cardiovascular Exam: Present: regular rate, normal rhythm, normal heart sounds. Absent: systolic murmur, diastolic murmur, rubs, gallop, clicks GI/Abdominal exam: Present: soft, normal bowel sounds. Absent: distended, tenderness, guarding, rebound, rigid Neurological exam: Present: alert, oriented X3, CN II-XII intact Psychiatric exam: Present: normal affect, normal mood Skin exam: Present: warm, dry, intact, normal color. Absent: rash Course Vital Signs 08/25/22 08/25/22 18:40 22:00 Temperature 97.9 F Pulse Rate 58 L 61 Respiratory 18 16 Rate Blood Pressure 149/73 138/68 O2 Sat by Pulse 96 97 Oximetry Chest Pain MDM - MDM This is a 61-year-old male who presents emergency department for chest pain, palpitations, and hot flashes. Was pt. sent in by a medical professional or institution? @ -No Did you speak to anyone other than the patient for history? @ -His Did you review nursing and triage notes? @ -Agree, accurate with regards to the patient's symptoms. Were old charts reviewed? @ -Yes, MRI of the brain from 08/18/22 and US of the carotid arteries from 08/23/22. Differential Diagnosis? @ -Differential Chest Pain: Stable Angina, Unstable Angina, STEMI, NSTEMI Aortic Dissection, Pneumothorax, Musculoskeletal, Esophageal Spasm GERD, Cholecystitis, Pancreatitis, Zoster, this is not meant to be an all-inclusive list. EKG interpreted by me (3pts min.)? @ -Sinus bradycardia. Ventricular rate 59 bpm, SD interval 155 ms, QRS duration 104 ms, QTC 457 ms. X-rays interpreted by me (1pt min.)? @ -Chest x-ray obtained, my interpretation reveals no localized consolidations or infiltrates. What testing was considered but not performed? (CT, X-rays, U/S, labs)? Why? @ -None What meds were considered but not given? Why? @ -None Did you discuss the management of the patient with other professionals? @ -No Did you reconcile home meds? @ -Yes Was critical care preformed (if so, how long)? @ -No Were there social determinants of health that impacted care today? How? (Homelessness, low income, unemployed, alcoholism, drug addiction, transportation, low edu. Level, literacy, decrease access to med. care, halfway, rehab)? @ -No Was there de-escalation of care discussed even if they declined? (Discuss DNR or withdrawal of care, Hospice)? @ -No What co-morbidities impacted this encounter? (DM, HTN, Smoking, COPD, CAD, Cancer, CVA, Hep., AIDS, mental health diagnosis, sleep apnea, morbid obesity)? @ -HTN, hx of PE Was patient admitted / discharged? @ -Discharged. A large amount of lab work was obtained, which was all found to be nonactionable. EKG reveals no acute changes and my interpretation of the chest x-ray is listed above, also indicating no acute changes. I did add a testosterone level onto his lab work due to the hot flashes, however I advised that this will take a couple of days to come back. The patient can either call for the results or see his primary care provider is able to obtain them. Patient expresses understanding. At this point, we are not able to determine a specific cause of his symptoms. Advised that he'll need to continue his workup on an outpatient basis. Undiagnosed new problem with uncertain prognosis? @ -Hot flashes, memory loss Drug Therapy requiring intensive monitoring for toxicity (Heparin, Nitro, Insulin, Cardizem)? @ -None Were any procedures done? @ -No Diagnosis/symptom? @ -Chest pain Acute, or Chronic, or Acute on Chronic? @ -Acute Uncomplicated (without systemic symptoms) or Complicated (systemic symptoms)? @ -Uncomplicated Side effects of treatment? @ -None Exacerbation, Progression, or Severe Exacerbation] @ -Not applicable Poses a threat to life or bodily function? @ -Not if this is a noncardiac chest pain, as it appears to be at this time. Diagnosis/symptom? @ -Hot flashes Acute, or Chronic, or Acute on Chronic? @ -Chronic Uncomplicated (without systemic symptoms) or Complicated (systemic symptoms)? @ -Uncomplicated Side effects of treatment? @ -None Exacerbation, Progression, or Severe Exacerbation] @ -Exacerbation Poses a threat to life or bodily function? @ -No Return precautions reviewed in depth, the patient is instructed to return to the emergency department with any new, worsening, or concerning symptoms. Patient verbalized understanding. This case was discussed in detail with the attending ED physician. Presentation, findings, and treatment plan discussed in detail as well. Disposition Clinical Impression: Hot flashes, Chest pain Disposition: HOME SELF-CARE Instructions (If sedation given, give patient instructions): Chest Pain (ED) Additional Instructions: Return to the emergency department with any new, worsening, or concerning symptoms. Your testosterone level was ordered with results pending. Follow up with your primary care provider in 1-2 days. Is patient prescribed a controlled substance at d/c from ED?: No Referrals: Radha Landaverde MD [Primary Care Provider] - 1-2 days
[2022-08-25 19:54] LABS: Basophils % (A) 0 %; Eosinophils # (A) 0.1 k/uL (0-0.7); Eosinophils % (A) 2 %; HCT 40.4 % (39.0-53.0); HGB 13.6 gm/dL (13.0-17.5); Lymphocytes % (A) 19 %; MCH 28.3 pg (25.0-35.0); MCHC 33.7 g/dL (31.0-37.0); MCV 84.1 fL (80.0-100.0); Monocytes # (A) 0.4 k/uL (0-1.0); Monocytes % (A) 7 %; Neutrophils # (A) 3.6 k/uL (1.3-7.7); Neutrophils % (A) 71 %; Platelet Count 113 k/uL (150-450); RBC 4.81 m/uL (4.30-5.90); RDW 13.8 % (11.5-15.5); WBC 5.1 k/uL (3.8-10.6)
[2022-08-25 20:01] LABS: ALT 23 U/L (4-49); AST 20 U/L (17-59); African American GFR (CKD) >90 (>60 ml/min/1.73 sqM); Albumin 3.9 g/dL (3.5-5.0); Alkaline Phosphatase 104 U/L (38-126); Amylase 44 U/L (30-110); Anion Gap 6 mmol/L; Blood Urea Nitrogen 19 mg/dL (9-20); C Reactive Protein 0.7 mg/dL (<1.0); Calcium 8.6 mg/dL (8.4-10.2); Carbon Dioxide 27 mmol/L (22-30); Chloride 107 mmol/L (98-107); Glucose 89 mg/dL (74-99); Lipase 91 U/L (23-300); Magnesium 2.1 mg/dL (1.6-2.3); Non-African American GFR(CKD) >90 (>60 ml/min/1.73 sqM); Potassium 3.9 mmol/L (3.5-5.1); Sodium 140 mmol/L (137-145); Total Bilirubin 0.4 mg/dL (0.2-1.3); Total Protein 6.6 g/dL (6.3-8.2)
[2022-08-25 20:18] LABS: Partial Thromboplastin Time 24.1 sec (22.0-30.0); Prothrombin Time 10.8 sec (9.0-12.0)
--- NOTE | 2022-08-25 20:29 | XR ---
EXAMINATION TYPE: XR chest 2V DATE OF EXAM: 08/25/2022 COMPARISON: 06/10/2022 HISTORY: Short of breath TECHNIQUE: FINDINGS: Heart is normal. Lungs are clear of infiltrate. No heart failure. There are no hilar masses . The bony thorax is intact. There is minor spurring in the thoracic spine. IMPRESSION: No active cardiopulmonary disease. Normal heart. No change.
[2022-08-25 21:37] LABS: Appearance,Urine Clear (Clear); Bilirubin,Urine Negative (Negative); Blood,Urine Negative (Negative); Color,Urine Colorless; Glucose,Urine (UA) Negative (Negative); Ketones,Urine Negative (Negative); Leukocyte Esterase,Urine Negative (Negative); Nitrite,Urine Negative (Negative); Protein,Urine Negative (Negative); Specific Gravity,Urine 1.006 (1.001-1.035); Urobilinogen,Urine <2.0 mg/dL (<2.0)
[2022-08-25 21:58] LABS: Erythrocyte Sedimentation Rate 13 mm/hr (0-15)
[2022-08-25 22:49] VITALS: BP 138/68; PULSE 61; RESP 16
== END 2022-08-25 22:37 | disposition home or self-care (01) ==
LOC: EC 18:39
DX: R07.9 Chest pain, unspecified (principal); I10 Essential (primary) hypertension; K21.9 Gastro-esophageal reflux disease without esophagitis; Z86.718 Personal history of other venous thrombosis and embolism; Z79.899 Other long term (current) drug therapy
CPT/HCPCS: 36415; 71046; 80053; 81003; 82150; 83690; 83735; 84402; 84403; 84443; 84484; 85025; 85379; 85610; 85652; 85730; 86140; 93005; 99285

== ENCOUNTER → 2023-01-12 | Outpatient (CLI) | payer BC, OTHER ==
--- NOTE | 2023-01-13 11:10 | XR ---
EXAMINATION TYPE: XR lumbar spine 2 or 3V DATE OF EXAM: 01/12/2023 CLINICAL HISTORY: Scoliosis with low back pain TECHNIQUE: Frontal and lateral images of the lumbar spine are obtained. COMPARISON: None. FINDINGS: There are 5 lumbar type vertebral bodies identified. The lumbar spine shows levoconvex sc oliosis centered at L2 level. Vertebral body heights and disc space heights are preserved. There are bridging osteophytes anteriorly and laterally throughout the entire lumbar spine. Overlying soft tiss ue is unremarkable. Visualized portion of sacroiliac joints is felt within normal limits. IMPRESSION: Complete ankylosis of the lumbar spine. Scoliosis is noted.
== END | disposition home or self-care (01) ==
LOC: RADXRMAIN 09:43
PROVIDERS: ATTEND Physical Medicine & Rehabilitation
DX: M41.9 Scoliosis, unspecified (principal); M54.50 Low back pain, unspecified
CPT/HCPCS: 72100

== ENCOUNTER → 2023-01-22 | Outpatient (CLI) | payer BC, OTHER ==
[2023-01-22 20:00] LABS: HCT 42.8 %; HGB 13.8 d/dL; MCH 28.8 pg; MCHC 32.2 d/dL; MCV 89.4 FL; Mean Platelet Volume 12.2 FL; NRBC Per 100 WBC 0 X 10*3/uL; Platelet Count 140 X 10*3/uL; RBC 4.79 X 10*6/uL; RDW 13.2 %; WBC 4.93 X 10*3/uL
[2023-01-22 20:32] LABS: African American GFR (CKD) >90; Blood Urea Nitrogen 17.6 mg/dL; Carbon Dioxide 25.6 mmol/L; Chloride 108 mmol/L; Non-African American GFR(CKD) >90; Potassium 4.7 mmol/L; Sodium 144 mmol/L
== END | disposition home or self-care (01) ==
LOC: LABPAT 11:22
PROVIDERS: ATTEND Internal Medicine
DX: Z01.812 Encounter for preprocedural laboratory examination (principal); R07.9 Chest pain, unspecified
CPT/HCPCS: 36415; 80051; 82565; 84520; 85027

== ENCOUNTER 2023-02-01 10:58 | Day surgery (SDC) | payer BC, OTHER ==
[2023-01-31 10:45] VITALS: BMI 35.9
[~2023-02-01 10:58] MED LIST: ALPRAZolam 0.25 MG TAB PO PRN; ALPRAZolam 0.5 MG TAB PO PRN; ASPIRIN 325 MG TAB PO STA; ATORVASTATIN 80 MG TAB PO STA; HEPARIN SODIUM,PORCINE 10,000 UNIT in SODIUM CHLORIDE 0.9% 1,000 ML IRRIGATION PRN; HEPARIN SODIUM,PORCINE 2,500 UNIT in SODIUM CHLORIDE 0.9% 250 ML IRRIGATION PRN; NITROGLYCERIN SL TABS 0.4 MG TAB SUBLINGUAL PRN
[2023-02-01] MEDS ORDERED: SODIUM CHLORIDE 0.9% 1,000 ML in EMPTY BAG 1 BAG IV SCH (11:45)
[2023-02-01 11:55] VITALS: BP 144/79; PULSE 53; RESP 16; TEMP 98.1
[2023-02-01] MEDS ORDERED: fentaNYL (PF) 50 MCG/ML 2 ML AMP ONE (12:04)
[2023-02-01] MEDS ORDERED: HEPARIN SODIUM 1,000 UN/ML (10ML VL) ONE (12:04)
[2023-02-01] MEDS ORDERED: VERAPAMIL 2.5 MG/ML 2 ML AMP ONE (12:04)
[2023-02-01] MEDS ORDERED: fentaNYL (PF) 50 MCG/ML 2 ML AMP IVP ONE (12:18)
[2023-02-01] MEDS ORDERED: MIDAZOLAM 2 MG/2 ML VIAL IVP ONE (12:18)
[2023-02-01] MEDS ORDERED: LIDOCAINE 1% INJ 10MG/ML (5 ML VIAL-PF) SQ ONE (12:22)
[2023-02-01] MEDS ORDERED: VERAPAMIL SYRINGE (5 MG/10 ML) INTRAARTER ONE (12:23)
[2023-02-01] MEDS ORDERED: HEPARIN SODIUM 1,000 UN/ML (10ML VL) IVP ONE (12:25)
[2023-02-01] MEDS ORDERED: IOPAMIDOL-370 100ML BTL INJ ONE (12:32)
--- NOTE | 2023-02-01 12:37 | P.CARDCATH ---
Description of Procedure: PROCEDURES PERFORMED: Left heart catheterization, bilateral coronary angiography INDICATION: Abnormal stress test CONSENT:I have discussed the risks, benefits and alternative therapies for the above-mentioned procedure and for both sedation/analgesia as well as necessary blood product administration, if indicated, as they pertain to this patient. The patient has indicated understanding and acceptance of the risks and procedures discussed. PROCEDURE: After the risks, benefits and alternatives of the above mentioned procedure explained in detail with the patient, informed consent was obtained. Patient was taken to the catheterization lab and prepped and draped in usual fashion. 1% lidocaine was used to anesthetize the right radial artery. A 6- [place]ian sheath was placed in the right radial artery using modified Seldinger technique. Left coronary angiography was performed with a 5-[place]serratian JL 3.5 catheter and right coronary angiography was performed with a 5-[place]err[place]ian JR5 catheter in various views. A 5-[place]err[place]ian FR5 catheter was inserted into the left ventricle and pressure measurements were obtained. The right radial sheath was removed and a TR band was placed with hemostasis achieved. The patient tolerated the procedure well. Patient was transported back to the post catheterization holding area in stable condition. Conscious Sedation: Patient was monitored under the direct supervision of myself for conscious sedation using Versed and fentanyl for a total duration of 11 minutes HEMODYNAMICS: Aorta: 157/82 LV: 151/14, LVEDP 24 SELECTIVE CORONARY ARTERIOGRAPHY: LEFT MAIN: The left main is a large caliber vessel which bifurcates into the LAD and circumflex. There is no significant stenosis. LEFT ANTERIOR DESCENDING CORONARY ARTERY: LAD is a large caliber vessel which wraps around to the apex. There is no significant stenosis. LEFT CIRCUMFLEX CORONARY ARTERY: Left circumflex is a moderate caliber vessel without significant stenosis. RIGHT CORONARY ARTERY: The right coronary artery is a large caliber vessel which gives off a PDA and PLV branch and is the dominant vessel. There is no significant stenosis. FINAL IMPRESSION: 1. Normal coronary arteries as described above. 2. Elevated left sided filling pressures PLAN: 1. Aggressive risk factor modification per most recent ACC/AHA guidelines. 2. Trial of Lasix
[2023-02-01] MEDS ORDERED: HYDROcodone/APAP 10-325MG 1 EACH TAB ONE (14:22)
== END 2023-02-01 16:00 | disposition home or self-care (01) ==
LOC: CATHCVL 10:58
PROVIDERS: ATTEND Internal Medicine
DX: R94.39 Abnormal result of other cardiovascular function study (principal); I10 Essential (primary) hypertension; E78.5 Hyperlipidemia, unspecified; Z79.01 Long term (current) use of anticoagulants; Z79.899 Other long term (current) drug therapy
CPT/HCPCS: 93458; C1769; C1894; J2250; J2001; J3010; J1644; Q9967

== ENCOUNTER → 2023-03-20 | Outpatient (CLI) | payer BC, OTHER | END | disposition home or self-care (01) | LOC: LABWHC1 09:04 | PROVIDERS: ATTEND Internal Medicine | DX: E16.2 Hypoglycemia, unspecified (principal) | CPT/HCPCS: 36415; 84681 ==

== ENCOUNTER → 2023-04-03 | Outpatient (CLI) | payer BC, OTHER ==
--- NOTE | 2023-04-03 20:03 | MR ---
EXAMINATION TYPE: MR pancreas wo/w con DATE OF EXAM: 04/03/2023 7:01 PM INDICATION: Patient age:Male; 62 years old; Reason for study: K79.9 ABNORMAL FINDING OF BLOOD CHEMISTRY; PHH. Abnormal blood findings. COMPARISON: None TECHNIQUE: Multiplanar multi-sequence imaging was performed without contrast. Post contrast imaging was performed. Post IV contrast subtraction images were also submitted for review. IV Contrast: 12 cc Gadavist FINDINGS: LOWER CHEST: No gross irregularity. ABDOMEN Liver: Unremarkable. Gallbladder and Bile ducts: Layering gallstone within the gallbladder. The common bile duct is within normal limits measuring up to 3 mm. The pancreas and pancreatic duct is within normal limits. Pancreas: Main pancreatic duct is nondilated. Mild fatty infiltration the pancreas. No suspicious mas ses. Spleen: Small splenule is present. Adrenal glands: Unremarkable. Kidneys: Intrinsic high T1 signal proteinaceous/hemorrhagic cysts right kidney measuring 8 mm. In the left kidney Stomach and Bowel: Unremarkable as visualized. Peritoneum: No evidence of pneumoperitoneum or free fluid. Vasculature: Unremarkable. No aortic aneurysm. Musculoskeletal: The osseous structures appear intact. High T1/high T2 signal L1 vertebral body proba ble hemangioma. Lymph Nodes: No gross evidence for lymphadenopathy. Abdominal wall: Unremarkable. IMPRESSION: 1. No evidence for pancreatic mass or ductal dilation. No evidence for acute pancreatitis. Mild panc reatic lipomatous atrophy changes. If there remains concern for a mass such as a carcinoid consider n [facility] octreotide scan. 2. Cholelithiasis. 3. L1 vertebral body hemangioma. 4. Intrinsic high T1 signal lesion within the right kidney inferior to represent proteinaceous/hemor rhagic cyst.
== END | disposition home or self-care (01) ==
LOC: RADMRIMAIN 17:27
PROVIDERS: ATTEND Internal Medicine
DX: K80.20 Calculus of gallbladder without cholecystitis without obstruction (principal); D18.09 Hemangioma of other sites; K86.89 Other specified diseases of pancreas; N28.89 Other specified disorders of kidney and ureter; R79.9 Abnormal finding of blood chemistry, unspecified
CPT/HCPCS: 74183; A9585

== ENCOUNTER → 2023-07-30 | Outpatient (CLI) | payer BC, OTHER ==
--- NOTE | 2023-07-30 16:46 | NM ---
Nuclear medicine hepatobiliary scan. HISTORY: Pain. DOSAGE: The patient received 8 0z Ensure plus and 5.2 mCi of Technetium 99m Choletec. FINDINGS: There is normal hepatic extraction. The gallbladder is seen by 20 minutes. There is bilia ry to bowel clearance by 20 minutes. Ejection fraction is 95%. IMPRESSION: 1. No evidence of cholecystitis. 2. Ejection fraction of 95% can be occasionally associated with hyperdynamic gallbladder.
== END | disposition home or self-care (01) ==
LOC: RADNMMAIN 12:44
PROVIDERS: ATTEND Internal Medicine
DX: K80.20 Calculus of gallbladder without cholecystitis without obstruction (principal)
CPT/HCPCS: 78226; A9537

== ENCOUNTER 2025-02-26 15:53 | Emergency (ER) | payer BC ==
[2025-02-26 16:11] VITALS: TEMP 98
--- NOTE | 2025-02-26 17:13 | US ---
EXAMINATION TYPE: US venous doppler duplex LE RT DATE OF EXAM: 02/26/2025 4:42 PM COMPARISON: Bilateral lower extremity venous ultrasound 06/10/2022 CLINICAL INDICATION: Male, 64 years old with history of Leg swelling w/ pain; Pain, Pain TECHNIQUE: The lower extremity deep venous system is examined utilizing real time linear array sonog diony with graded compression, color doppler sonography, and spectral doppler. SIDE PERFORMED: Right FINDINGS: VESSELS IMAGED: Common Femoral Vein Deep Femoral Vein Greater Saphenous Vein * Femoral Vein Popliteal Vein Small Saphenous Vein * Proximal Calf Veins (* superficial vessels) Right Leg: Negative for DVT, Color Doppler imaging shows patency of the vessels. Spectral waveforms are within normal limits. IMPRESSION: No evidence of deep vein thrombosis of the right lower extremity. [facility], , 02/26/2025 5:11 PM
--- NOTE | 2025-02-26 17:24 | ED ---
General Adult HPI - General Chief complaint: Extremity Problem,Nontraumatic Stated complaint: R leg swelling Time Seen by Provider: 02/26/25 17:03 Source: patient Mode of arrival: ambulatory Limitations: no limitations - History of Present Illness Initial comments: This is a 64-year-old male with a history of PE on Xarelto presenting to the emergency department with concerns of right mid thigh pain over the past few days. Patient is concerned that he recently had a long trip back driving from [place] from 20 February and returned on Sunday. He states that the area feels tight and is worse with movement. He denies chest pain, heart palpitations, dyspnea. Denies fevers, chills, erythema or swelling around the area. Denies trauma, falls to the leg. Patient states that he has been taking all of his medications including his blood thinner as prescribed. - Related Data Home Medications Medication Instructions Recorded Confirmed HYDROcodone/APAP 10-325MG [[place] 1 tab PO QID 11/22/14 02/01/23 10] Metoprolol Tartrate [Lopressor] 50 mg PO BID 11/22/14 02/01/23 Baclofen 10 mg PO TID PRN 08/25/22 02/01/23 Escitalopram [Lexapro] 10 mg PO HS 08/25/22 02/01/23 Famotidine [Pepcid] 20 mg PO HS PRN 08/25/22 02/01/23 Rivaroxaban [Xarelto] 20 mg PO DAILY 08/25/22 02/01/23 Magnesium 400 mg PO HS 02/01/23 02/01/23 Previous Rx's Medication Instructions Recorded Furosemide [Lasix] 40 mg PO DAILY #90 tablet 02/01/23 Allergies Allergy/AdvReac Type Severity Reaction Status Date / Time morphine AdvReac Nausea & Verified 02/26/25 16:10 Vomiting Review of Systems ROS Statement: Those systems with pertinent positive or pertinent negative responses have been documented in the HPI. ROS Other: All systems not noted in ROS Statement are negative. Past Medical History Past Medical History: Deep Vein Thrombosis (DVT), GERD/Reflux, Hypertension, Pulmonary Embolus (PE) Additional Past Medical History / Comment(s): In the ICU last May. for a PE. History of Any Multi-Drug Resistant Organisms: None Reported Past Surgical History: Adenoidectomy, Hernia Repair, Orthopedic Surgery, Tonsillectomy Additional Past Surgical History / Comment(s): hx of chronic back pain seizures vrs panic attack Past Anesthesia/Blood Transfusion Reactions: Postoperative Nausea & Vomiting (PONV) Past Psychological History: Anxiety Smoking Status: Never smoker Past Alcohol Use History: Rare Past Drug Use History: None Reported - Past Family History Mother Family Medical History: No Reported History General Exam Limitations: no limitations Neck exam: Present: normal inspection. Absent: tenderness, meningismus, lymphadenopathy Respiratory exam: Present: normal lung sounds bilaterally. Absent: respiratory distress, wheezes, rales, rhonchi, stridor Cardiovascular Exam: Present: regular rate, normal rhythm, normal heart sounds. Absent: systolic murmur, diastolic murmur, rubs, gallop, clicks GI/Abdominal exam: Present: soft, normal bowel sounds. Absent: distended, tenderness, guarding, rebound, rigid Right Upper Leg exam: Present: tenderness. Absent: swelling, deformity, erythema Neurovascular tendon exam: Present: no vascular compromise. Absent: pulse deficit, abnormal cap refill Back exam: Present: normal inspection Skin exam: Present: warm, dry, intact, normal color. Absent: rash Course Vital Signs 02/26/25 02/26/25 16:07 17:53 Temperature 98 F 98 F Pulse Rate 55 L 54 L Respiratory 20 17 Rate Blood Pressure 104/64 116/73 O2 Sat by Pulse 98 98 Oximetry Medical Decision Making - Medical Decision Making Was pt. sent in by a medical professional or institution (, PA, INTERCHANGE AGENT, urgent care, hospital, or correction...) When possible be specific @ -No Did you speak to anyone other than the patient for history (EMS, parent, family, police, friend...)? What history was obtained from this source @ -No Did you review nursing and triage notes (agree or disagree)? Why? @ -I reviewed and agree with nursing and triage notes Were old charts reviewed (outside hosp., previous admission, EMS record, old EKG, old radiological studies, urgent care reports/EKG's, correction records)? Report findings @ -No old charts were reviewed Differential Diagnosis (chest pain, altered mental status, abdominal pain women, abdominal pain men, vaginal bleeding, weakness, fever, dyspnea, syncope, headache, dizziness, GI bleed, back pain, seizure, CVA, palpatations, mental health, musculoskeletal)? @ -Differential Musculoskeletal Muscular strain, contusion, ligament sprain, fracture, arthritis, septic arthritis, bursitis, cellulitis, muscle spasm, nerve compression, DVT, arterial occlusion, herpes zoster, electrolyte abnormality, tumor.... This is not meant to be in all inclusive list EKG interpreted by me (3pts min.). @ -None X-rays interpreted by me (1pt min.). @ -None done CT interpreted by me (1pt min.). @ -None done U/S interpreted by me (1pt. min.). @ -Ultrasound of the right lower extremity reveals no evidence of DVT What testing was considered but not performed or refused? (CT, X-rays, U/S, labs)? Why? @ -None What meds were considered but not given or refused? Why? @ -None Did you discuss the management of the patient with other professionals (professionals i.e. , PA, INTERCHANGE AGENT, lab, RT, psych nurse, social welfare research worker, world travel counselor, teacher, water resources technical officer, on site manager)? Give summary @ -No Was smoking cessation discussed for >3mins.? @ -No Was critical care preformed (if so, how long)? @ -No Were there social determinants of health that impacted care today? How? (Homelessness, low income, unemployed, alcoholism, drug addiction, transportation, low edu. Level, literacy, decrease access to med. care, alf, rehab)? @ -No Was there de-escalation of care discussed even if they declined (Discuss DNR or withdrawal of care, Hospice)? DNR status @ -No What co-morbidities impacted this encounter? (DM, HTN, Smoking, COPD, CAD, Cancer, CVA, ARF, Chemo, Hep., AIDS, mental health diagnosis, sleep apnea, morbid obesity)? @ -None Was patient admitted / discharged? Hospital course, mention meds given and route, prescriptions, significant lab abnormalities, going to OR and other pertinent info. @ -Discharge. 64-year-old male presenting with complaints of right thigh pain. There are no obvious deformities on examination. Mild tenderness to palpation of the medial thigh. Negative Homans' sign. Ultrasound reveals no evidence of DVT. Patient arrived with muscle relaxer symptoms likely secondary to muscle strain. Return parameters discussed. Case discussed with my attending Dr. Keen Undiagnosed new problem with uncertain prognosis? @ -No Drug Therapy requiring intensive monitoring for toxicity (Heparin, Nitro, Insulin, Cardizem)? @ -No Were any procedures done? @ -No Diagnosis/symptom? @ -Leg pain nontraumatic Acute, or Chronic, or Acute on Chronic? @ -Acute Uncomplicated (without systemic symptoms) or Complicated (systemic symptoms)? @ -Uncomplicated Side effects of treatment? @ -No Exacerbation, Progression, or Severe Exacerbation? @ -No Poses a threat to life or bodily function? How? (Chest pain, [place], [place], pneumonia, PE, COPD, DKA, ARF, appy, cholecystitis, CVA, Diverticulitis, Homicidal, Suicidal, threat to staff... and all critical care pts) @ -No Disposition Clinical Impression: Muscle spasm Disposition: HOME SELF-CARE Condition: Good Instructions (If sedation given, give patient instructions): Leg Pain (ED) Additional Instructions: Please return to the Emergency Department if symptoms worsen or any other concerns. Is patient prescribed a controlled substance at d/c from ED?: No Referrals: Radha Landaverde MD [Primary Care Provider] - 1-2 days Time of Disposition: 17:36
[2025-02-26] MEDS: ORPHENADRINE 30 MG/ML 2 ML VIAL IM STA (17:50)
[2025-02-26 18:00] VITALS: BP 116/73; PULSE 54; RESP 17
== END 2025-02-26 17:59 | disposition home or self-care (01) ==
LOC: EC 15:53
DX: M62.831 Muscle spasm of calf (principal); Z88.5 Allergy status to narcotic agent
CPT/HCPCS: 93971; 99283; 96372; J2360

== ENCOUNTER → 2025-03-03 | Outpatient (CLI) | payer BC ==
--- NOTE | 2025-03-05 22:06 | P.PCN ---
Date of Procedure: 03/03/25 Operative Findings: Sleep study report History This is a 64-year-old male patient with loud snoring, stopping breathing episodes at night, and excessive daytime sleepiness. The patient had a previous sleep study and she was diagnosed having obstructive sleep apnea. Her symptoms improved as the patient lost weight. Since then, the patient has gained weight back and the patient has classical symptoms of SHALA. Based on that, a home sleep study was requested. The patient has also history of recurrent DVTs and pulmonary embolism, hypertension and hyperlipidemia. The patient is obese with a weight of 272 pounds with a BMI of 36.9. Physical findings BMI is 36.1 Technical description The [employer] system was used to complete the [facility] sleep study. This is a type III home sleep study evaluation. The total recording duration was 7 hours and 17 minutes. The recording started at 9:53 PM and it ended at 5:30 AM. There was a total of 7 hours and 4 minutes of flow monitoring and 7 hours and 6 minutes of oxygen saturation monitoring. Results Respiratory analysis showed a total of 56 obstructive apneas and 75 obstructive hypopneas. The resulting AHI was 18.5 and the disease was worse in the supine body position with an AHI of 27.1 while supine. Oxygenation analysis The patient had a baseline pulse ox of 93% while awake. Average pulse ox during sleep was 94% with a minimum pulse ox of 84%. The patient spent only 3 minutes of the sleep time below pulse ox of 89% Cardiac summary Average heart rate was 43 with a minimum heart rate of 47 and maximum heart rate of 75 Assessment Obstructive sleep apnea, moderately severe with AHI of 18.5, worsening supine body position. Mild nocturnal oxygen desaturation Loud snoring Chronic hypersomnia and sleepiness Obesity with a BMI of 36.9 Recurrent DVT/pulmonary embolism Hypertension Hyperlipidemia BPH Plan The patient will be asked to come back to the sleep center to undergo CPAP titration for symptomatic obstructive sleep apnea. Encourage weight loss. Will ask the patient to sleep on her side as the patient's disease is positional and worsening supine body position. Will continue to follow.
== END ==
LOC: 3 N SLEEP 16:40
PROVIDERS: ATTEND Internal Medicine Critical Care Medicine
DX: G47.33 Obstructive sleep apnea (adult) (pediatric) (principal); E66.9 Obesity, unspecified; I26.99 Other pulmonary embolism without acute cor pulmonale; I10 Essential (primary) hypertension; E78.5 Hyperlipidemia, unspecified; N40.0 Benign prostatic hyperplasia without lower urinary tract symptoms; Z68.36 Body mass index [BMI] 36.0-36.9, adult; Z88.5 Allergy status to narcotic agent